=== PATIENT | male | born 1950 | race Caucasian/White ===

== ENCOUNTER → 2017-01-24 | Outpatient (CLI) | payer OTHER ==
[~2017-01-24] MED LIST: ACETAMINOPHEN325 M1 PO; APAP500 PO; ASPIRIN EC81 M1 PO; CLARITIN10 MG PO; CLEOCIN HCL300 MG PO; COLACE100 MG PO; CYCLOBENZAPRINE10 MG PO; DOLOPHINE HCL10 MG; FAMOTIDINE20 MG PO; FLAX OIL1000 MG PO; GABAPENTIN PO; HYDROCODON-ACE1 EAC7 PO; IBUPROFEN; IBUPROFEN 200200 M1 PO; IBUPROFEN200 M2 PO; KRILL OIL 1,001 EAC1 PO; MEDROLDOSEPACK PO; MIRALAX255 GM PO; MOBIC15 MG PO; MOBIC7.5 M1 PO; NORCO 5-325 TA1 EACH PO; PERCOCET 10-321 EACH PO; PROBIOTIC1 EAC1 PO; ROBAXIN 750 MG750 M1 PO; WELLBUTRIN XL150 M1 PO; ZANTAC 150MG T150 M1 PO
--- NOTE | ~2017-01-24 | EKG ---
[address] [address] ELECTROCARDIOGRAM REPORT Name: DEEP BAINS Room #: [facility] PRAVEEN Hughes#: [id number] Admission: 01/24/17 Attend Phys: Natalya Charles MD Discharge: Date of : 52 Report #: [id number] THIS REPORT FOR: //name// [facility] Test Date: 2017-01-24 Test Time: 15:09:44 Pat Name: DEEP BAINS Department: Room: Gender: Educational Programming Director: Nelli MORE : 1950 Requested By: Natalya Charles Order Number: [id number] MD: Baldo Turner Measurements Intervals [place] Rate: 74 P: 68 NE: 161 QRS: 81 QRSD: 101 T: 56 QT: 377 QTc: 419 Interpretive Statements Sinus rhythm Borderline right axis deviation No previous ECG available for comparison Electronically Signed On 01-24-2017 15:59:59 CDT by Baldo Turner [email or web address] <ELECTRONICALLY SIGNED> By: Baldo Turner MD 01/24/17 1559 1509 1509 MD JULIET Dweyr
== END ==
LOC: CV 14:50
DX: Z01.818 Encounter for other preprocedural examination (principal)

== ENCOUNTER → 2017-05-27 | Outpatient (CLI) | payer OTHER ==
[~2017-05-27] VITALS: Ht 188 cm; Wt 105.7 kg
--- NOTE | ~2017-05-27 | HPC ---
[facility] [address] [place] [address] PAIN MANAGEMENT CONSULTATION Name: DEEP BAINS Room #: REG [facility]#: [id number] Admission: 05/27/17 Attend Phys: Tammy Pelaez MD Discharge: Date of : 52 Report #: [id number] THIS REPORT FOR: //name// CC: Shaka Eaton MD DATE OF SERVICE: 05/27/2017 PRIMARY CARE PHYSICIAN: Shaka Dominique M.D. FOLLOWUP COMPLAINT: The sacroiliac joint pain has returned and is very bad. FOLLOWUP HISTORY: The patient is a 66-year-old gentleman who has been seen in the pain clinic because of cervical radiculopathy, lumbar radiculopathy and SI joint dysfunction. He notes that with activities of daily living, he has had increased pain and discomfort in the left sacroiliac joint. He was lifting and pulling with his left arm. He noted some increased pain and discomfort in this area. It is myofascial in nature. He is having some pain in the area of the pectoralis minor. At this juncture, he would like to proceed with an injection into the left SI joint. He notes that movement and changes of position can significantly exacerbated the pain and discomfort he is having in his back. PHYSICAL EXAMINATION: VITAL SIGNS: Blood pressure 134/94, respiratory rate 16 and room air saturation is 98%. Height 6 feet 2 inches, weight 233 pounds and BMI is 29. MUSCULOSKELETAL: The patient has pain and discomfort in the left sacroiliac area to movement of his left leg. Positive Christian sign. Increased pain with dependent position of the left leg hanging from the bed. RECOMMENDATIONS: We discussed treatment options with the patient. Risks and benefits of this procedure were explained. The patient elects to proceed. PROCEDURE NOTE: The patient was placed in the prone position. His back was sterilely prepped with a chlorhexidine solution. A 25-gauge needle was used to numb the area of the SI joint. Fluoroscopy was used for imaging. After appropriate numbing, a 20-gauge spinal needle was then advanced into the area of the SI joint. After appropriate placement, a total of 5 mL of 0.5% bupivacaine and 80 mg Depo-Medrol was injected. The patient tolerated the procedure well. There were no complications. We would like to thank you for letting us participate in his care. We hope he continues to improve. By: 1702 1814 Tammy Pelaez MD /dana
[2017-05-27 11:36] VITALS: BP 135/94
== END | disposition home or self-care (01) ==
LOC: PAIN 03-23 07:27
DX: M53.3 Sacrococcygeal disorders, not elsewhere classified (principal); M54.16 Radiculopathy, lumbar region; M54.12 Radiculopathy, cervical region; G89.29 Other chronic pain; Z88.0 Allergy status to penicillin; Z88.2 Allergy status to sulfonamides; Z91.040 Latex allergy status; Z79.82 Long term (current) use of aspirin

== ENCOUNTER → 2017-06-15 | Outpatient (CLI) | payer OTHER ==
[~2017-06-15] VITALS: Ht 188 cm; Wt 104.4 kg
--- NOTE | ~2017-06-15 | HPC ---
[facility] [address] [place] [address] PAIN MANAGEMENT CONSULTATION Name: DEEP BAINS Katina Room #: REG [facility]#: [id number] Admission: 06/15/17 Attend Phys: Tammy Pelaez MD Discharge: Date of : 52 Report #: [id number] THIS REPORT FOR: //name// CC: Tammy Eaton MD DATE OF SERVICE: 06/15/2017 FOLLOWUP COMPLAINT: The back pain is improved, but my cervical neck pain and arm pain have returned. FOLLOWUP HISTORY: The patient is a 66-year-old gentleman who has been followed in the Pain Clinic because of pain involving the lumbar radicular area. He underwent an epidural steroid injection at the last visit. He has noted improvement in this area. At this juncture, his cervical area is more problematic with pain radiating down into his shoulders, arms with numbness and tingling, described as sharp and heavy and rates this discomfort as a 7/10. He would like to undergo a cervical epidural steroid injection. PHYSICAL EXAMINATION: NECK: The patient finds it is somewhat hard to rotate his neck from left to right, notes increased pain and discomfort when he is looking up, has pain in both arms when he was lifting them. Has a history of cervical radiculopathy, which has improved with epidural steroid injections. VITAL SIGNS: Blood pressure 134/93, pulse 69, respiratory rate 16, room air saturation 98%. Height 6 feet 2 inches, weight 230 pounds, BMI is 29.5. RECOMMENDATIONS: We discussed treatment options with the patient. Risks and benefits of a cervical epidural steroid injection were reviewed. Possible complications were discussed. The patient elects to proceed. IMPRESSION: 1. Improved lumbar radiculopathy after an epidural steroid injection. 2. Cervical radiculopathy, which is problematic with numbness, weakness and tenderness involving his upper extremities. 3. History of sacroiliac joint dysfunction. PLAN: We discussed treatment options with the patient. Risks and benefits were reviewed. He elects to proceed. PROCEDURE NOTE: The patient was placed in the prone position. Fluoroscopy was used to identify the C7-T1 interspace. This area had been sterilely prepped with Betadine and infiltrated with 0.25% bupivacaine. A total of 120 mg triamcinolone was injected. The patient tolerated the procedure well. This area had been infiltrated with 0.25% bupivacaine. [place] [address] PAIN MANAGEMENT CONSULTATION Name: DEEP BAINS Room #: REG CLI [facility]#: [id number] Admission: 06/15/17 Attend Phys: Tammy Pelaez MD Discharge: Date of : 52 Report #: [id number] Clinic for an appropriate amount of time. The patient's pain decreased from 7 to 4. Six seconds fluoroscopy time was used. By: 0914 0057 Tammy Pelaez MD /
[2017-06-15 10:42] VITALS: BP 134/93
== END | disposition home or self-care (01) ==
LOC: PAIN 07:17
DX: M54.12 Radiculopathy, cervical region (principal); M54.16 Radiculopathy, lumbar region; M53.3 Sacrococcygeal disorders, not elsewhere classified

== ENCOUNTER → 2017-09-27 | Outpatient (CLI) | payer OTHER ==
[2017-09-27 08:34] LABS: CREATININE 0.8 mg/dL (0.7-1.3)
== END ==
LOC: CAT 08:03 → LABMALL 08:06
PROVIDERS: Nurse Practitioner
DX: K57.90 Diverticulosis of intestine, part unspecified, without perforation or abscess without bleeding (principal); Z90.49 Acquired absence of other specified parts of digestive tract

== ENCOUNTER → 2017-11-04 | Outpatient (CLI) | payer OTHER ==
[~2017-11-04] VITALS: Ht 185.4 cm; Wt 110.3 kg
--- NOTE | ~2017-11-04 | HPC ---
[facility] [address] [address] [address] PAIN MANAGEMENT CONSULTATION Name: DEEP BAINS Room #: REG [facility]#: [id number] Admission: 11/04/17 Attend Phys: Tammy Pelaez MD Discharge: Date of : 52 Report #: [id number] THIS REPORT FOR: //name// CC: Tammy Eaton MD DATE OF SERVICE: 11/04/2017 FOLLOWUP COMPLAINT: I have noticed a worsening of pain in my neck and my back. FOLLOWUP HISTORY: The patient is a 66-year-old gentleman, who has been seen in the past because of lumbar radiculopathy. He also has a problem with cervical radiculopathy. He has noticed a worsening of pain and discomfort in the upper shoulder areas and has pain, which is radiating down into his shoulders and both arms. He is having pain, which is radiating down into his legs as well. His pain is rated as a 7/10. It is slow in his ability to engage in activities of daily living down significantly. At this juncture, he feels that the cervical complaint is greater than that in the lower extremities. He feels that an epidural injection in the cervical area would be helpful. Past injections have been quite beneficial. He has not had any complications from them in the past. He finds that Robaxin is beneficial and continues to use Mobic. ALLERGIES: LATEX, TAPE, PENICILLIN, AND SULFA. MEDICATIONS: Robaxin 750 mg b.i.d., Claritin 10 mg, Meloxicam 15 mg daily, Tylenol regular strength p.r.n., aspirin 81 mg p.r.n. PHYSICAL EXAMINATION: VITAL SIGNS: Blood pressure 132/87, heart rate 84, respiratory rate 16, room air saturation 98%. Height 6 feet 1 inch, weight 243 pounds, BMI is 32. HEENT: Negative for trauma. Ears and eyes: Findings are unchanged and unremarkable. Mouth: Moist buccal membranes. NECK: No JVD, no bruits. CHEST: Clear. RESPIRATIONS: Nonlabored. HEART: Regular rate. ABDOMEN: Obese, nontender. BACK: Some diffuse pain in the lower lumbar area and the paraspinous tenderness at L4-L5 with palpation. No step-offs noted. The patient has pain and discomfort in the L5-S1 distribution. Upper extremity: The patient has pain and discomfort, radiating down in his shoulders with numbness in his arms and tingling. Has perception of some weakness in his hands. Lifting hands over his head can worsen pain and discomfort in his cervical area. IMPRESSION: Lumbar radiculopathy and cervical radiculopathy. Cervical [facility] [address] [place] [address] PAIN MANAGEMENT CONSULTATION Name: DEEP BAINS Room #: REG PR[facility] Hughes#: [id number] Admission: 11/04/17 Attend Phys: Tammy Pelaez MD Discharge: Date of : 52 Report #: [id number] radiculopathy is more prominent than that in the lumbar area at this juncture and the patient would like to proceed with a cervical epidural steroid injection. History of sacroiliac joint dysfunction, which has improved after the SI joint injections. RECOMMENDATIONS: We discussed treatment options with the patient. Risks and benefits of an epidural steroid injection were discussed. Possible complications of the procedure were discussed. They could include but are not limited to infection, increased muscle soreness, headache, bleeding, nerve trauma, and persistent weakness. The patient states that he has taken his flu shot. He does not smoke. PROCEDURE NOTE: The patient was taken to the procedure area. His neck was sterilely prepped with a Betadine solution. Fluoroscopy was used to identify the C7/T1 interspace. This area had been sterilely prepped with Betadine and infiltrated with 0.25% bupivacaine. A 17-gauge Tuohy with loss of resistance technique was used to gain access to the epidural space. There was no CSF, heme, or paresthesia. After appropriate positioning, a total of 120 mg triamcinolone was injected. The patient tolerated the procedure well. There were no complications. His pain decreased from 7 to 2 at the time of discharge. Total of 11 seconds of fluoro time was used. A Band-Aid was placed at the site. There was no bleeding. The patient was then taken to the recovery room where he remained for an appropriate amount of time. He will follow up in the future as needed. We would like to thank you for letting us participate in his care. We hope he continues to improve. <ELECTRONICALLY SIGNED> By: Tammy Pelaez MD 11/25/17 1332 0815 1258 Tammy Pelaez MD /TEA
[2017-11-04 10:30] VITALS: BP 132/87
== END | disposition home or self-care (01) ==
LOC: PAIN 06:55
DX: M54.12 Radiculopathy, cervical region (principal); G89.29 Other chronic pain; M54.16 Radiculopathy, lumbar region; Z88.0 Allergy status to penicillin; Z88.2 Allergy status to sulfonamides; Z91.040 Latex allergy status; Z79.82 Long term (current) use of aspirin; Z79.899 Other long term (current) drug therapy

== ENCOUNTER → 2018-01-02 | Outpatient (CLI) | payer OTHER | LOC: CAT 11:41 | DX: J01.00 Acute maxillary sinusitis, unspecified (principal) ==

== ENCOUNTER → 2018-02-24 | Outpatient (CLI) | payer OTHER ==
[~2018-02-24] VITALS: Ht 185.4 cm; Wt 104.7 kg
--- NOTE | ~2018-02-24 | HPC ---
[facility] [address] [address] PAIN MANAGEMENT CONSULTATION Name: HERSONDEEP Katina Room #: REG [facility]#: [id number] Admission: 02/24/18 Attend Phys: Tammy Pelaez MD Discharge: Date of : 52 Report #: [id number] THIS REPORT FOR: //name// CC: Tammy Eaton MD DATE OF SERVICE: 02/24/2018 FOLLOWUP COMPLAINT: He had some worsening of low back pain that goes down into the groin as well as down to the right ankle. FOLLOWUP HISTORY: The patient is a 67-year-old gentleman who has been followed in the pain clinic for quite a number of years. As you recall, he has problems with his neck as well as with low back. At this juncture, he is having pain in the low back area. He is experiencing pain that radiates down into his leg. He has had surgery in the past. He rates the pain in the right low back as 6-7/10. He is unable to perform activities of daily living secondary to the pain. He denies any new trauma. He describes it as some heavy numbness, tingling, aching, and stabbing in the affected area. Pain is worse when he is walking, bending, and lifting. Has tried cold and heat as well as lying down, which have been helpful. Also, has pain in the groin area. Denies having lifted any heavy objects. Denies any bowel or bladder changes. He has undergone epidural steroid injections in the past and they have all been beneficial. Continues to try nonsteroidal anti-inflammatory medications and is on Mobic 15 mg daily. He has not taken any opioid medications at this juncture on a regular basis. ALLERGIES: TAPE, LATEX, PENICILLIN, SULFA. MEDICATIONS: Robaxin 750 mg b.i.d., Claritin 10 mg daily, Meloxicam 15 mg daily, Tylenol Extra Strength p.r.n., aspirin 81 mg. PAIN CLINIC ASSESSMENT: 1. The patient states that he is not being treated for osteoarthritis, but has had some arthritic changes in his back and has undergone surgery. 2. Height 6 feet 1 inch, weight 230 pounds, BMI is 30. 3. Vital signs: Blood pressure 139/96, pulse 75, respiratory rate 16, room air saturation 100. 4 Pain intensity 6-7. 5. Fall risk. The patient has not fallen in the last 3 months. 6. Blood thinner. The patient is not on a blood thinner. 7. Hypertension. The patient is not being treated for hypertension. 8. Opioid therapy greater than 6 weeks. The patient is not on opioid therapy. 9. Risk assessment tool, 0/3, which is low. 10. Functional assessment 40/70, which shows moderate impact upon activities of daily living. [address] [address] PAIN MANAGEMENT CONSULTATION Name: DEEP BAINS Room #: REG [facility]#: [id number] Admission: 02/24/18 Attend Phys: Tammy Pelaez MD Discharge: Date of : 52 Report #: [id number] 11. Recreational drug use. Denies use of recreational drugs. 12. Tobacco The patient has never smoked cigarettes. 13. Alcohol: The patient denies use of alcoholic beverages. PHYSICAL EXAMINATION: GENERAL: The patient is well-developed, well-nourished white male, appears his stated age. He is alert and oriented x 3. Affect is appropriate. Speech is fluent. HEENT: Normocephalic, atraumatic. Extraocular eye muscles intact. Sclerae nonicteric. Hearing is within normal limits. Mucous membranes are moist. NECK: Without adenopathy or bruits. Good range of motion. CHEST: Clear to auscultation without rhonchi or rales. ABDOMEN: Protuberant without significant scoliosis, kyphosis or lordosis. EXTREMITIES: Upper extremity muscle strength is judged to be 5/5 for the major muscle groups in the upper extremity. He does have some continued pain in his neck and sometimes down into his arms, but this is not very problematic at this juncture. This is He does have some pain radiating down into both shoulders and his arms. Lumbar/lower extremity: The patient has pain and discomfort in the lower portion of his back with pain radiating down into the right leg. States that he has trouble walking. Notes that his feet feel heavy with some numbness. Left posterior superior iliac spine area does have some areas of soreness. Has some mid back pain and discomfort and some pain radiating into the right groin area. The patient has a L4-L5 sensory changes with some numbness and weakness. IMPRESSION: 1. History of lumbar radiculopathy status post lumbar surgeries in the past with exacerbation today. 2. Cervical radiculopathy, not quite as problematic today as the lumbar area. 3. History of sacroiliac joint dysfunction. RECOMMENDATIONS: We discussed treatment options with the patient. Risks and benefits of an epidural steroid injection were again reviewed. Possible complications were discussed. They could include but are not limited to infection, increased muscle soreness, worsening of pain, nerve damage. The patient elects to proceed. He continues to have some cervical pain and discomfort as well. He is becoming more active now with spring is turning to summer. Overall, this pain is not as problematic as that in his low back area. He has returned to the pain clinic for an epidural steroid injection. Risks have been discussed with the patient. He would like to proceed. We will consult his insurance company for precertification. After this, we would then proceed with an injection in the L4-L5 area to help with pain and discomfort. [address] [place] [address] PAIN MANAGEMENT CONSULTATION Name: HERSONDEEP Room #: REG CL Ellen#: [id number] Admission: 02/24/18 Attend Phys: Tammy Pelaez MD Discharge: Date of : 52 Report #: [id number] He will call us if he has any problems in the interim. We would like to thank you for letting us participate in his care. We hope he continues to improve. <ELECTRONICALLY SIGNED> By: Tammy Pelaez MD 03/03/18 0902 1043 1520 Tammy Pelaez MD /TEA
[2018-02-24 10:21] VITALS: BP 139/96
== END ==
LOC: PAIN 10:01
DX: M54.12 Radiculopathy, cervical region (principal); F11.90 Opioid use, unspecified, uncomplicated; I10 Essential (primary) hypertension

== ENCOUNTER → 2018-03-08 | Outpatient (CLI) | payer OTHER ==
[~2018-03-08] VITALS: Ht 188 cm; Wt 103.7 kg
--- NOTE | ~2018-03-08 | HPC ---
[facility] [place] [address] [place] [address] PAIN MANAGEMENT CONSULTATION Name: HERSONDEEP D Room #: REG [facility]#: [id number] Admission: 03/08/18 Attend Phys: Tammy Pelaez MD Discharge: Date of : 52 Report #: [id number] THIS REPORT FOR: //name// CC: Tammy Eaton MD DATE OF SERVICE: 03/08/2018 FOLLOWUP COMPLAINT: Here for the epidural steroid injection. FOLLOWUP HISTORY: The patient is a 67-year-old gentleman, who has been followed in the pain clinic for quite a number of problems. He has had some pain and discomfort in the past with cervical radicular pain. He has undergone epidural steroid injections in this area. He has also had some problems with his low back and has undergone back surgery because of lumbar radiculopathy and disk problems. He has undergone epidural steroid injections and feels that he is having pain and discomfort, which radiates in 2 places. There is pain which radiates down into the left leg in the L5 distribution as well as pain and discomfort radiating to the anterior portion of his right groin. He notes that this pain is quite problematic, rates his pain overall today as a 7/10. He has chat with his . She is a nurse. At this juncture, they feel that an epidural steroid injection for the groin pain would be the most reasonable treatment course today. He has returned for an epidural steroid injection to help with pain in the right groin area. ALLERGIES: LATEX, TAPE, PENICILLIN, SULFA. MEDICATIONS: Robaxin 750 mg b.i.d., Claritin 10 mg, Meloxicam 15 mg daily, Tylenol regular strength p.r.n., aspirin 81 mg p.r.n. PAIN CLINIC ASSESSMENT: 1. History of osteoarthritis. The patient is not being treated for osteoarthritis or rheumatoid arthritis. 2. Height 6 feet 2 inches, weight 228 pounds, BMI is 29. 3. Vital Signs: Blood pressure 117/80, pulse 75, respiratory rate 16, room air saturation is 97%. 4. Pain intensity 05/02. 5. Fall risk. The patient has not fallen in the last 3 months. 6. Blood thinner use. The patient is not using a blood thinner 7. History of hypertension. The patient is not being treated for hypertension. 8. Opioid therapy greater than 6 weeks. The patient is not receiving opioid medications on a regular basis. 9. Functional assessment tool 40/70, indicated moderate amount of pain and discomfort when engaged in activities of daily living. 10. Recreational drug use. Denies use of recreational drugs. [address] [address] PAIN MANAGEMENT CONSULTATION Name: DEEP BAINS [id number] Admission: 03/08/18 Attend Phys: Tammy Pelaez MD Discharge: Date of : 52 Report #: [id number] 11. Tobacco. The patient has never smoked. 12. Alcohol. The patient denies frequent use of alcoholic beverages. PHYSICAL EXAMINATION: GENERAL: The patient is a well-developed, well-nourished white male. He appears his stated age. He is not in distress. Speech is fluent. Affect is appropriate. HEENT: Normocephalic, atraumatic. Extraocular eye muscles are intact. Sclerae nonicteric. Hearing is within normal limits. Mucous membranes are moist. NECK: Without significant adenopathy, bruits or JVD. LUNGS: Clear to auscultation without murmur. HEART: Regular rate. S1 and S2. ABDOMEN: Nontender. MUSCULOSKELETAL: Without significant scoliosis, kyphosis or lordosis. Upper extremity strength is judged to be 5/5 for the major muscle groups in the upper extremity. Lower extremity, the patient has some pain and discomfort in the left low back area with pain radiating down at the L4-L5 dermatomal distribution. He has pain and discomfort in the right area, which radiates into the L1-L2 area of his groin. The patient feels that this area is the most problematic at this juncture and would like to have an epidural steroid injection for this. IMPRESSION: 1. Lumbar radiculopathy with pain in the L4-L5 distribution as well as pain in the L1-L2 distribution on the right. 2. Cervical radiculopathy without significant problems at this juncture. 3. History of sacroiliac joint dysfunction. RECOMMENDATIONS: We discussed treatment options with the patient. At this juncture, he feels that the pain in the right groin area is that which is most problematic. We have discussed and pointed out to the patient where the nerve irritation would originate for this area. Risks and benefits of an epidural steroid injection were again reviewed. Possible complications were discussed. They include but are not limited to infection, increased muscle soreness, headache, bleeding, paresis, nerve paralysis and the patient elects to proceed. PROCEDURE NOTE: The patient was placed in the prone position. His back was sterilely prepped with a Betadine solution. This was allowed to dry. 0.25% bupivacaine was infiltrated into this area. A 17-gauge Tuohy with loss of resistance technique was used to gain access to the epidural space. There was no CSF, heme or paresthesia. A total of 80 mg Depo-Medrol, 40 mg triamcinolone and 2 mL of 0.25% bupivacaine was injected. The patient tolerated the procedure well. There were no complications. He remained in the pain clinic for an appropriate amount of time. A Band-Aid was placed. There was no bleeding. The patient rates his pain as a 5 and describes it as "better." A total of 13 seconds fluoro time was used. [address] [address] PAIN MANAGEMENT CONSULTATION Name: DEEP BAINS Room #: REG CLI [facility]#: [id number] Admission: 03/08/18 Attend Phys: Tammy Pelaez MD Discharge: Date of : 52 Report #: [id number] We would like to thank you for letting us participate in his care. We hope he continues to improve. By: 1430 54 Tammy Pelaez MD /TEA
[2018-03-08 10:55] VITALS: BP 117/80
== END | disposition home or self-care (01) ==
LOC: PAIN 06:20
DX: M54.16 Radiculopathy, lumbar region (principal); G89.29 Other chronic pain; M54.12 Radiculopathy, cervical region; M53.3 Sacrococcygeal disorders, not elsewhere classified; Z98.890 Other specified postprocedural states; Z88.0 Allergy status to penicillin; Z88.2 Allergy status to sulfonamides; Z91.040 Latex allergy status; Z79.82 Long term (current) use of aspirin; Z79.899 Other long term (current) drug therapy

== ENCOUNTER → 2018-03-29 | Outpatient (CLI) | payer OTHER | LOC: MRI 07:17 | DX: M19.011 Primary osteoarthritis, right shoulder (principal); S46.911A Strain of unspecified muscle, fascia and tendon at shoulder and upper arm level, right arm, initial encounter; X58.XXXA Exposure to other specified factors, initial encounter; Y93.89 Activity, other specified; Y92.89 Other specified places as the place of occurrence of the external cause; Y99.8 Other external cause status ==

== ENCOUNTER → 2018-05-01 | Outpatient (CLI) | payer OTHER | LOC: MRI 12:56 | DX: M48.062 Spinal stenosis, lumbar region with neurogenic claudication (principal); M51.16 Intervertebral disc disorders with radiculopathy, lumbar region; M25.78 Osteophyte, vertebrae; M51.46 Schmorl's nodes, lumbar region ==

== ENCOUNTER → 2018-10-13 | Outpatient (CLI) | payer OTHER ==
[~2018-10-13] VITALS: Ht 188 cm; Wt 107.0 kg
--- NOTE | ~2018-10-13 | HPC ---
[facility] [place] [address] PAIN MANAGEMENT CONSULTATION Name: DEEP BAINS Room [facility]: [facility] [id number] Admission: 10/13/18 Attend Phys: Tammy Pelaez MD Discharge: Date of : 52 Report #: [id number] THIS REPORT FOR: //name// CC: Tammy Eaton DATE OF SERVICE: 10/13/2018 CHIEF COMPLAINT: Here for a cervical epidural steroid injection. I have been working on a house with my son for about 2 months, noted worsening of pain in the neck. HISTORY OF PRESENT ILLNESS: The patient is a 67-year-old gentleman who has been followed in the pain clinic because of chronic pain involving his neck as well as his back. He and his son have been restoring the house. States that he has been doing plumbing and a lot of other activities around the house. He has noted a worsening of pain and discomfort in his neck. He is unable to look up. Notes that doing the activities around the house, he was looking up quite a bit. In the past, he has noted worsening of pain and discomfort. He is unable to raise his right arm up above his head without significant pain and discomfort, notes some weakness down into his fingers as well. He feels that there is some stiffness in his hands. He is waking up because of the pain and discomfort. He has undergone cervical epidural steroid injections in the past and gleaned significant benefits from these. He has returned today with the desire to undergo another epidural steroid injection. He is somewhat concerned that his rujasq-qn-ltp is in the hospital. His hzxxdo-og-tdn-swallowed a portion of his ____. This moved to his stomach and is down in the area of his appendix. He is on a ventilator in the hospital. He is not doing so well. ALLERGIES: LATEX, TAPE, PENICILLIN, AND SULFA. MEDICATIONS: Robaxin 750 mg, Claritin 10 mg, meloxicam 15 mg daily, and Tylenol Extra Strength p.r.n. 81 mg. PAIN CLINIC ASSESSMENT AND PQRS: 1. Osteoarthritis. The patient is not being treated for osteoarthritis. He has not being treated for rheumatoid arthritis. 2. Height 6 feet 2 inches, weight 235 pounds, BMI is 30.2. 3. Vital signs: Blood pressure 139/85, pulse 74, respiratory rate 16, room air saturation 96%. 4. Pain intensity 8/10. 5. Fall risk. The patient has not fallen in the last 3 months. 6. Blood thinner. The patient is not on a blood thinning medication. 7. Hypertension. The patient is not being treated for hypertension. [address] [address] PAIN MANAGEMENT CONSULTATION Name: DEEP BAINS [facility] [id number] Admission: 10/13/18 Attend Phys: Tammy Pelaez MD Discharge: Date of : 52 Report #: [id number] 8. Opioids greater than 6 weeks. The patient is not on an opioid regimen. 9. Risk assessment tool for opioids 0/3 low for use. 10. Functional assessment tool 40/70. 11. Recreational drug use. The patient denies use of recreational drugs. 12. Tobacco: The patient has never smoked. 13. Alcohol: The patient denies use of alcoholic beverages. PHYSICAL EXAMINATION: GENERAL: The patient is a well-developed, well-nourished white male. Appears his stated age. He is alert and oriented x 3. His affect is appropriate. Speech is fluent. HEENT: Normocephalic, atraumatic. Extraocular eye muscles intact. Sclerae nonicteric. Mucous membranes are moist. NECK: The patient has some limitation in his ability to look up with extension as well as notes some increased pain with right and left bending of his neck. He is experiencing pain that radiates down into his right shoulder down into his arm and forearm area. LUNGS: Clear to auscultation without rhonchi or rales. HEART: Regular rate. S1, S2. ABDOMEN: Nontender. Bowel sounds present. MUSCULOSKELETAL: Without significant scoliosis, kyphosis, or lordosis. Upper extremity muscle strength is judged to be 4+ strength on the left. It was 5/-5 strength on the right. The patient has some discomfort in the low back area. Overall, muscle strength in the lower area is 5-/5 for the major muscle groups in lower extremity. Uses his arms to go from a sitting to a standing position. IMPRESSION: 1. Cervical radiculopathy with radiation down to left shoulder with numbness, tingling, and weakness in the left shoulder and arm with tingling down into his fingers. 2. History of lumbar radiculopathy in the L4-L5 distribution, status post surgery. RECOMMENDATIONS: We discussed treatment options with the patient. Risks and benefits of an epidural steroid injection in the cervical area were reviewed. Possible complication of the procedure, which could include but are not limited to infection, worsening of pain, increased muscle soreness were discussed and the patient elects to proceed. The patient has undergone cervical epidural steroid injection in the past. He has gained greater than 90% improvement after the injections. This was for a 9-month period of time. Over the last 2 months, he has noted increased pain and discomfort. He has been doing stretching exercises and other things to try and decrease the neck pain and discomfort. Overall, this continued to worsen and he has returned to the pain clinic with a desire to undergo an injection. We will have the patient return after he has been pre-certified by his insurance company. [address] [address] PAIN MANAGEMENT CONSULTATION Name: SHANDA BAINSMARYANN Ambriz Room #: REG [facility]ITAL[facility]ette#: [id number] Admission: 10/13/18 Attend Phys: Tammy Pelaez MD Discharge: Date of : 51 Report #: [id number] We would like to thank you for letting us participate in his care. We hope he continues to improve. By: 1200 0227 Tammy Pelaez MD /nt
[2018-10-13 10:13] VITALS: BP 139/85
== END ==
LOC: PAIN 09:54
DX: M54.12 Radiculopathy, cervical region (principal); M54.16 Radiculopathy, lumbar region; R20.2 Paresthesia of skin

== ENCOUNTER → 2018-10-23 | Outpatient (CLI) | payer OTHER | LOC: RAD 10:10 | DX: M19.012 Primary osteoarthritis, left shoulder (principal); M54.2 Cervicalgia ==

== ENCOUNTER → 2018-10-30 | Outpatient (CLI) | payer OTHER ==
[~2018-10-30] MED LIST changes: +OXYCODONE-ACET1 EACH PO; +PREDNISONE 20 M20 MG PO
== END ==
LOC: MRI 10:37
DX: M50.23 Other cervical disc displacement, cervicothoracic region (principal); M47.892 Other spondylosis, cervical region; M75.102 Unspecified rotator cuff tear or rupture of left shoulder, not specified as traumatic

== ENCOUNTER → 2018-11-01 | Outpatient (CLI) | payer OTHER ==
[~2018-11-01] VITALS: Ht 188 cm; Wt 106.7 kg
--- NOTE | ~2018-11-01 | HPC ---
[facility] [address] [place] [address] PAIN MANAGEMENT CONSULTATION Name: DEEP BAINS Room #: REG [facility]#: [id number] Admission: 11/01/18 Attend Phys: Tammy Pelaez MD Discharge: Date of : 52 Report #: [id number] THIS REPORT FOR: //name// CC: Tammy Eaton DATE OF SERVICE: 11/01/2018 FOLLOWUP HISTORY/CHIEF COMPLAINT: Here for cervical epidural injection. I am having lots of pain. HISTORY: The patient is a 67-year-old gentleman who has been followed in the pain clinic because of cervical radiculopathy as well as lumbar radiculopathy. He has undergone epidural steroid injection in the lumbar area in the past and gleaned benefits from these. At this juncture, he is having the most pain and discomfort in his neck area with pain that is radiating down into the left arm. He also has had some problems and pain involving his left shoulder. He states that he had an MRI that showed that there were some problems in his shoulder. He is scheduled to go and see an orthopedic surgeon in regards to that problem. He has returned today with the hope of undergoing an epidural steroid injection in the cervical area with hope of improved pain and discomfort in his neck. His is a nurse. Unfortunately, her father as a result of his prolonged illness. This has made it somewhat more troubling for him and his given the current situation. ALLERGIES: LATEX, TAPE, PENICILLIN, SULFA. CURRENT MEDICATIONS: Robaxin 750 mg b.i.d., Claritin 10 mg, Meloxicam 15 mg, Tylenol regular strength, aspirin 81 mg p.r.n. PAIN CLINIC ASSESSMENT/PQRS: 1. The patient is not being treated for rheumatoid arthritis. He does have some arthritic changes involving his left shoulder. 2. Height 6 feet 2 inches, weight 235 pounds, BMI is 30. 3. Vital signs: Blood pressure 122/70, pulse 95, respiratory rate 16, room air saturation 98%. 4. Pain intensity 10/10. 5. Fall risk. The patient has not fallen in the last 3 months. 6. Blood thinner. The patient is not on a blood thinning medication. 7. Hypertension. The patient is not been treated for hypertension. 8. Opioid greater than 6 weeks. The patient is not on a regular opioid regimen. 9. Risk assessment tool, low for opioid use, 0/3. 10. Functional assessment tool 40/70. 11. Recreational drug use: The patient denies. 12. Tobacco: [place] [address] PAIN MANAGEMENT CONSULTATION Name: DEEP BAINS Room #: REG [facility]#: [id number] Admission: 11/01/18 Attend Phys: Tammy Pelaez MD Discharge: Date of : 52 Report #: [id number] 13. Alcohol: The patient occasionally drinks alcoholic beverages. PHYSICAL EXAMINATION: GENERAL: The patient is a well-developed, well-nourished white male. Appears his stated age. He complains of pain and discomfort in his neck as well as in his left shoulder. He does look and complains of significant pain and discomfort. HEENT: Normocephalic, atraumatic. Extraocular eye muscles intact. Sclerae nonicteric. Mucous membranes are moist. The patient has some limited movement of his neck. Spurling's maneuver is positive. The patient has pain and discomfort radiating down to the left arm. Also, notes some limited movement in his left shoulder. Complains of pain and discomfort in the posterior portion of his left scapular area down in the area of rhomboids. LUNGS: Generally clear to auscultation. HEART: Regular rate. S1, S2. ABDOMEN: Nontender. MUSCULOSKELETAL: Without significant scoliosis, kyphosis or lordosis. Upper extremity muscle strength is judged to be 5-/5 for the major muscle groups in the upper extremity. The patient has pain and discomfort with pain radiating down into his left hand with numbness and tingling involving his fingers. IMPRESSION: 1. Lumbar radiculopathy with pain in the cervical area. 2. History of lumbar radiculopathy, L4-L5 distribution. 3. History of sacroiliac joint dysfunction. LABORATORY DATA: 1. Cervical spine dated 10/30/2018. This show narrowing of disk C4/C5 and C5/C6 similar to prior study. There is also mild anterolisthesis and narrowing of the disk at C6-C7. This is associated with a focal central disk protrusion asymmetrical to the right, which is minimally more prominent. 2. C3-C4 shows central disk bulging. There is uncovertebral spurring and degenerative changes with possible lateral disk component, which causes foraminal encroachment on the left. The appearance is similar. There is pxlh-aa-eekhxawo foraminal encroachment on the right from degenerative changes. This is less marked on the left. Central canal measures 9 mm and is minimally narrowed. 3. C4-C5 shows disk narrowing with mild diffuse disk bulge. Central canal is narrowed measuring 9 mm. There is uncovertebral facet degenerative changes bilaterally. Appearance is similar to prior study. 4. C5/C6 shows disk bulge centrally. There is uncovertebral and facet degenerative change and bilateral foraminal encroachment. Central canal is narrowed to 9 mm. 5. C6-C7 shows disk bulging diffusely with some asymmetry to the left. Central canal is narrowed measuring 9 mm. There is uncovertebral and facet degenerative change with bilateral foraminal encroachment, similar to prior study. There is [facility] [address] [place] [address] PAIN MANAGEMENT CONSULTATION Name: DEEP BAINS Room #: REG [facility]#: [id number] Admission: 11/01/18 Attend Phys: Tammy Pelaez MD Discharge: Date of : 52 Report #: [id number] a left canalicular facet joint cyst measuring 6 mm x 2 mm. 6. C7-T1 demonstrates more prominent disk protrusion. There is a component extending both to the right in to the left with more prominent, component extending to the left with mass effect on the left neural foramen. There is milder narrowing of the right neural foramen. The central component is less marked and central canal measures 10 mm. 7. MRI of the left shoulder without contrast dated 10/30/2018. IMPRESSION: 1. Remote rotator cuff tear with severe attenuation of the supraspinatus portion of repair. There appears to be a small full thickness perforation along the posterior margin of repair. This may be incidental, but if there are supraspinatus weakness, then MRI arthropathy followup should be considered. 2. Benign appearing eccentrically located lesion along the lateral cortex of the proximal humeral metaphysis. X-ray correlation recommended. The lesion is smoothly marginated, angiographic. Periarticular radiographic followup is recommended. RECOMMENDATIONS: We discussed treatment options with the patient. At this juncture, we will proceed with a cervical epidural steroid injection. Risks and benefits of an epidural steroid injection were discussed. Possible complications of the procedure, which could include but are not limited to infection, worsening of pain, no improvement in pain, were discussed and the patient elects to proceed. PROCEDURE NOTE: The patient was placed in the prone position. Fluoroscopy was used to identify the C7-T1 interspace. A pillow had been placed under the patient's chest to improve positioning. A 0.25% bupivacaine had been used to sterilely prep the area. A 0.25% bupivacaine using a 25-gauge needle was then used to numb up the area. A 17-gauge Tuohy with loss of resistance technique was moved into the appropriate place using anterior, posterior as well as lateral viewing with fluoroscopy. After appropriate placement, a total of 120 mg triamcinolone was injected. The patient tolerated the procedure well. There were no complications. He remained in the pain clinic for an appropriate amount of time. Still complains of pain and discomfort, which is quite problematic, a total of 15 seconds fluoroscopy time was used. We would like to thank you for letting us participate in his care. He will follow up with his orthopedic surgeon in the near future. By: 1848 0240 Tammy Pelaez MD /dana
[2018-11-01 13:51] VITALS: BP 122/70
--- NOTE | 2018-11-01 13:58 | NUR ---
Pain Clinic Assessment: 1. History of Osteoarthritis: Not Applicable History of Rheumatoid Arthritis: Not Applicable 2. Height: 6 ft. 2 in. 188.0 cm. Weight: 235.2 lb. oz. 106.686 kg. Patient's BMI: 30.2 3. Vital Signs: BP: 122/70 Pulse: 95 Resp: 16 Temp: 02 Sat: 98 ECG Mon: 4. Pain Intensity: 10 5. Fall Risk: Dizziness: N Needs help standing or walking: N Fallen in the last 3 months: N Fall risk comments: 6. Patient on Blood Thinner: None 7. History of Hypertension: N 8. Opioid Therapy greater than 6 weeks: N Opiate Contract Signed: 9. Risk Assessment Tool Provided: LOW RISK 0/3 10. Functional Assessment Tool: 11. Recreational Drug Use: Never Drug Type: Tobacco Use: Never Smoker Tobacco Type: Amount or Packs/day: How Many Years: Alcohol Use: Yes Frequency: Quant:
== END | disposition home or self-care (01) ==
LOC: PAIN 07:06
DX: M54.12 Radiculopathy, cervical region (principal); G89.29 Other chronic pain; Z91.040 Latex allergy status; Z88.0 Allergy status to penicillin; Z88.2 Allergy status to sulfonamides; Z79.82 Long term (current) use of aspirin; Z79.899 Other long term (current) drug therapy

== ENCOUNTER → 2018-11-10 | Outpatient (CLI) | payer OTHER ==
[~2018-11-10] MED LIST changes: +GABAPENTIN 100100 MG PO
--- NOTE | 2018-11-13 16:06 | PATH ---
[facility] [address] [place] [address] PATHOLOGY RPT PROCEDURE Name: DEEP BAINS Room #: [facility] [id number] ������������������ Admission: 11/10/18 ������������������ Date of : 52 Discharge: Report #: [id number] Path Case #: [id number] [facility] Accession Number: [id number] . 01 Material submitted: . BX POLYP DESCENDING COLON . 01 Clinical history: . Pre-OP DX: Hx polyps, right flank pain Post-OP DX: Colon polyp, diverticulosis . 02 Diagnosis: Polyp, descending colon polyp, endoscopic biopsy: - Tubular adenoma. - Negative for high-grade dysplasia. (IUV:pit 11/13/2018) QTP/11/13/2018 . 02 Electronically signed: . Nahomi Pagan MD, Pathologist NPI- [id number] . 01 Gross description: . Received in formalin labeled "Deep Bains, BX polyp descending colon," is a single segment of shore soft tissue measuring 0.5 cm in maximum dimension. The specimen is entirely submitted in cassette A1. (TSD; 11/10/2018) TOB/TOB . 02 Pathologist provided ICD-10: D12.4 . 02 CPT . 066371 Specimen Comment: A courtesy copy of this report has been sent to Specimen Comment: [phone], . Specimen Comment: Report sent to and Performed at: [address] [id number] MD Lebron Colin MD Phone: [phone] Performed at: [address] [id number] MD Nahomi Pagan MD Phone: [phone]
== END | disposition home or self-care (01) ==
LOC: GI 06:42
DX: D12.4 Benign neoplasm of descending colon (principal); K57.30 Diverticulosis of large intestine without perforation or abscess without bleeding; I10 Essential (primary) hypertension; E78.00 Pure hypercholesterolemia, unspecified; M54.2 Cervicalgia; G89.29 Other chronic pain; I48.91 Unspecified atrial fibrillation; Z79.01 Long term (current) use of anticoagulants; Z79.899 Other long term (current) drug therapy; Z90.49 Acquired absence of other specified parts of digestive tract; Z98.890 Other specified postprocedural states; Z86.010 Personal history of colon polyps; Z88.0 Allergy status to penicillin; Z88.2 Allergy status to sulfonamides; Z88.6 Allergy status to analgesic agent; Z91.040 Latex allergy status
CPT/HCPCS: 62110; 62900

== ENCOUNTER → 2018-12-06 | Outpatient (CLI) | payer OTHER | LOC: CAT 14:04 | DX: J34.89 Other specified disorders of nose and nasal sinuses (principal); R43.9 Unspecified disturbances of smell and taste ==

== ENCOUNTER → 2019-03-15 | Outpatient (CLI) | payer OTHER | LOC: RAD 10:12 | DX: M47.812 Spondylosis without myelopathy or radiculopathy, cervical region (principal); M43.12 Spondylolisthesis, cervical region; M43.22 Fusion of spine, cervical region; Z98.890 Other specified postprocedural states ==

== ENCOUNTER → 2019-04-19 | Outpatient (CLI) | payer OTHER | LOC: MRI 14:33 → RAD 14:33 | DX: M75.81 Other shoulder lesions, right shoulder (principal); M75.21 Bicipital tendinitis, right shoulder ==

== ENCOUNTER → 2019-08-15 | Outpatient (CLI) | payer OTHER ==
[~2019-08-15] MED LIST changes: +ACID REDUCER 1150 MG PO; +AZELASTINE137 MCG/0.; +CALCIUM500 MG PO; +FLOMAX0.4 MG PO; +FLONASE 0.05%50 MCG NARES; +PRILOSEC OTC20 MG PO; +TOPROL XL100 MG PO; +VALSARTAN80 MG PO; +XARELTO20 MG PO
== END ==
LOC: CAT 08:57
DX: Z13.6 Encounter for screening for cardiovascular disorders (principal); E78.00 Pure hypercholesterolemia, unspecified; I25.10 Atherosclerotic heart disease of native coronary artery without angina pectoris

== ENCOUNTER → 2019-08-22 | Outpatient (CLI) | payer OTHER ==
[~2019-08-22] VITALS: Ht 188 cm; Wt 104.3 kg
--- NOTE | 2019-08-24 17:06 | PATH ---
[facility] [address] [address] PATHOLOGY RPT PROCEDURE Name: DEEP BAINS Katina Room #: REG MARINikko Hughes#: [id number] Admission: 08/22/19 Date of : 52 Discharge: Report #: [id number] Path Case #: [id number] [facility] Accession Number: [id number] . 01 Material submitted: . PART A: stomach - BIOPSY OF GASTRITIS T R/O H. PYLORI PART B: stomach - GASTRIC POLYP . 01 Clinical history: . Preop DX: Cough, reflux Postop DX: Esophagitis, gastritis, duodenitis, gastric ulcer A. R/O H. pylori . 02 Diagnosis: A. Gastric mucosa, gastritis R/O H. pylori, endoscopic biopsy: - Mild reactive gastropathy. - Negative for intestinal metaplasia or atrophy. - Negative for Helicobacter pylori (properly controlled immunohistochemical stain performed). . B. Polyp, gastric polyp, endoscopic biopsy: - Compatible with a fundic gland polyp. - Negative for dysplasia. (IUV:john; 08/24/2019) QMS 08/24/2019 1302 Local . 02 Electronically signed: . Nahomi Pagan MD, Pathologist NPI- [id number] . 01 Gross description: . A. Received in formalin labeled "Deep Bains, BX of gastritis," are three segments of shore-brown soft tissue measuring 0.7 x 0.4 x 0.3 cm in aggregate dimensions and ranging from 0.3 to 0.4 cm in maximum dimension. The specimen is submitted entirely in cassette A1. . B. Received in formalin labeled "Deep Bains, gastric polyp," are three segments of shore soft tissue measuring 0.8 x 0.4 x 0.2 cm in aggregate dimensions and ranging from 0.3 to 0.4 cm in maximum dimension. The specimen is submitted entirely in cassette B1. (DAC; 08/23/2019) XDC/XDC 08/23/2019 1432 Local . 02 Pathologist provided ICD-10: K31.9, K31.7 . 02 CPT . [address] [address] PATHOLOGY RPT PROCEDURE Name: DEEP BAINS Room #: REG CL Ellen#: [id number] Admission: 08/22/19 Date of : 52 Discharge: Report #: [id number] Path Case #: [id number] Specimen Comment: A courtesy copy of this report has been sent to [phone] Specimen Comment: [phone] Specimen Comment: Report sent to / DR SANTOS Performed at: [address], [place] [id number] MD Lebron Colin MD Phone: [phone] Performed at: [address] [id number] MD Nahomi Pagan MD Phone: [phone]
--- NOTE | 2019-08-29 09:30 | P ---
[facility] [place] [address] PROCEDURE REPORT Name: DEEP BAINS Katina Room #: REG [facility]#: [id number] Admission: 08/22/19 Attend Phys: Eloy Swenson Discharge: Date of : 52 Report #: [id number] THIS REPORT FOR: //name// CC: Eloy Eaton MD PROCEDURE PERFORMED: Upper endoscopy with biopsies and esophageal dilation. HISTORY OF PRESENT ILLNESS: The patient is a 68-year-old male with dysphagia following an anterior cervical neck fusion surgery earlier this year. He does have intermittent heartburn symptoms, currently taking Zantac b.i.d., also was on aspirin and Mobic on a fairly regular basis. He does have chronic cough. Plan is for EGD. DESCRIPTION OF PROCEDURE: The risks and benefits of the procedure were explained to the patient, those risks including but not limited to bleeding, perforation and the risk of sedation. He understood these risks and gave informed consent. Sedation was given using propofol per anesthesia. Next, using a standard Olympus upper endoscope, the scope was placed in the patient's mouth and advanced under direct vision through the esophagus, stomach and into the second portion of the duodenum. The larynx was normal in appearance. The upper and mid esophagus was normal. In the distal esophagus at the GE junction, grade B erosive esophagitis was noted. No evidence of bleeding. No obvious stricture, although it was inflamed. Overall, there was mild gastritis in the gastric body and antrum. Biopsies were obtained to rule out H. pylori. Several small gastric polyps were also noted. Several were biopsied. The pylorus was normal and patent. In the duodenal bulb, there was a mild duodenitis. No evidence of bleeding or ulcer. The first and second portion of the duodenum was normal. The scope was then brought back up into the patient's stomach and a Savary guidewire was advanced through the scope, leaving the guidewire in place as the scope was then withdrawn. Next, a 51-Nepali Savary dilation of the esophagus was then performed without difficulty. The wire and dilator were removed. The scope was reintroduced into the patient's stomach. There was no evidence of mucosal tear after dilation. The scope was then withdrawn and the procedure terminated. The patient tolerated the procedure well. IMPRESSION: 1. Grade B erosive esophagitis. 2. Mild gastritis. 3. Gastric polyps. 4. Mild duodenitis. RECOMMENDATIONS: 1. Await biopsy results. 2. Observe the patient post-dilation. 3. Would recommend daily PPI therapy instead of Zantac b.i.d. [address] [address] PROCEDURE REPORT Name: DEEP BAINS Room #: REG PRAVEEN Hughes#: [id number] Admission: 08/22/19 Attend Phys: Eloy Swenson Discharge: Date of : 52 Report #: [id number] Thank you for allowing me to participate in his care. <ELECTRONICALLY SIGNED> By: Eloy Junior MD 08/29/19 0930 0940 [id number] Eloy Junior MD /nt
== END | disposition home or self-care (01) ==
LOC: GI 08:03
DX: R13.19 Other dysphagia (principal); K31.9 Disease of stomach and duodenum, unspecified; K31.7 Polyp of stomach and duodenum; K22.10 Ulcer of esophagus without bleeding; K29.80 Duodenitis without bleeding; K21.9 Gastro-esophageal reflux disease without esophagitis; I10 Essential (primary) hypertension; Z98.890 Other specified postprocedural states; Z90.49 Acquired absence of other specified parts of digestive tract; Z79.899 Other long term (current) drug therapy; Z88.0 Allergy status to penicillin; Z88.2 Allergy status to sulfonamides; Z88.8 Allergy status to other drugs, medicaments and biological substances; Z79.82 Long term (current) use of aspirin; Z91.040 Latex allergy status
CPT/HCPCS: 62110; 62900

== ENCOUNTER → 2019-09-06 | Outpatient (CLI) | payer OTHER ==
[~2019-09-06] VITALS: Ht 188 cm; Wt 104.9 kg
[2019-09-06 07:14] VITALS: BP 120/82
--- NOTE | 2019-09-06 09:17 | NUR ---
PT SLEEPING. AT BEDSIDE. VS STABLE 02 SATS 93-97% ON 6L N/C. WILL DECREASE 02 AND MONITOR.
--- NOTE | 2019-09-06 09:42 | TEE ---
[facility] [address] [place] [address] TRANSESOPHAGEAL ECHOCARDIOGRAM Name: DEEP BAINS [facility] [id number] Admission: 09/06/19 Attend Phys: Eric Putnam, Discharge: Date of : 52 Report #: [id number] THIS REPORT FOR: //name// APPROVED REPORT Study performed: 09/06/2019 08:38:49 EXAM: Transesophageal Echocardiogram with Doppler and Cardioversion Patient Location: laboratory manager holding Room #: 9 Status: routine BSA: 2.31 HR: 90 bpm BP: 120/82 mmHg Rhythm: Atrial Fibrillation Other Information Study Quality: Excellent Indications Atrial Fibrillation Echo Enhancing Agent Indication: Rule out Shunt Agent(s) / Amount(s) Used: Agitated Saline 7 cc Procedure After obtaining informed consent, patient underwent transesophageal echo in the [facility]. Type of Sedation : Conscious Sedation Sedation was administered by Ashley Presley RN. Sedation was achieved intravenously with: Versed (4 mg) Fentanyl (100 mcg) Transesophageal probe was inserted and advanced into esophagus without difficulty by Eric Putnam MD. Echo enhancement indication: R/O Septal defect. Echo enhancement agent administered: Agitated Saline The JOSELYN was performed without complications. Synchronized Cardioversion acheived with 200 Joules after 1 attempt(s). Rhythm following Synchronized Cardioversion: Normal Sinus Rhythm Throughout the procedure, the blood pressure, pulse oximetry, cardiac rhythm, and rate were monitored. The patient tolerated the procedure without adverse effects. Recovery [facility] [address] [place] [address] TRANSESOPHAGEAL ECHOCARDIOGRAM Name: DEEP BAINS [facility] #: [facility] [id number] Admission: 09/06/19 Attend Phys: Eric Putnam, Discharge: Date of : 52 Report #: [id number] from conscious sedation was uneventful and vital signs were stable. Left Ventricle The left ventricle is normal size. There is normal LV segmental wall motion. There is normal left ventricular wall thickness. The left ventricular systolic function is normal. The left ventricular ejection fraction is within the normal range. LVEF is 50-55%. Right Ventricle The right ventricle is normal size. The right ventricular systolic function is normal. Atria Left atrium is dilated. No thrombus is visualized in the left atrium or appendage. Small patent ovale with predominantly left to right shunting Right atrium is dilated. Aortic Valve The aortic valve is normal in structure. No aortic regurgitation is present. There is no aortic valvular stenosis. Mitral Valve The mitral valve is normal in structure. Mild mitral regurgitation. No evidence of mitral valve stenosis. Tricuspid Valve The tricuspid valve is normal in structure. There is no tricuspid valve regurgitation noted. Pulmonic Valve The pulmonary valve is normal in structure. There is no pulmonic valvular regurgitation. Great Vessels The aortic root is normal in size. Minimal scattered atherosclerosis IVC is normal in size and collapses >50% with inspiration. Pericardium There is no pericardial effusion. <Conclusion> The left ventricular systolic function is normal. There is normal LV segmental wall motion. LVEF is 50-55%. [facility] [address] [place] [address] TRANSESOPHAGEAL ECHOCARDIOGRAM Name: DEEP BAINS Room #: REG [facility] [id number] Admission: 09/06/19 Attend Phys: Eric Putnam, Discharge: Date of : 52 Report #: [id number] Both atria are dilated. No thrombus is visualized in the left atrium or appendage. Small patent ovale with predominantly left to right shunting The aortic valve is normal in structure. No aortic regurgitation or stenosis The mitral valve is normal in structure. Mild mitral regurgitation. Minimal scattered atherosclerosis There is no pericardial effusion. Successful cardioversion of atrial fibrillation to sinus rhythm following a single 200 J biphasic synchronous shock <ELECTRONICALLY SIGNED> By: Eric Putnam MD, FACC 09/06/19941 1 1 Eric Putnam MD, FACC /INF
--- NOTE | 2019-09-06 09:57 | NUR ---
PT SLEEPING ON LEFT SIDE. SPOUSE STATES HE SNORES LESS THIS WAY. RESPONDS TO VERBAL STIMULI. VS STABLE. 02 4L 95% SAT
== END | disposition home or self-care (01) ==
LOC: CATH 06:40
DX: I48.91 Unspecified atrial fibrillation (principal); I34.0 Nonrheumatic mitral (valve) insufficiency; I70.0 Atherosclerosis of aorta; I10 Essential (primary) hypertension; E78.5 Hyperlipidemia, unspecified; K21.9 Gastro-esophageal reflux disease without esophagitis; Z98.890 Other specified postprocedural states; Z79.899 Other long term (current) drug therapy; Z79.01 Long term (current) use of anticoagulants; Z90.49 Acquired absence of other specified parts of digestive tract; Z88.0 Allergy status to penicillin; Z88.2 Allergy status to sulfonamides; Z91.040 Latex allergy status; Z88.8 Allergy status to other drugs, medicaments and biological substances; Z79.82 Long term (current) use of aspirin

== ENCOUNTER → 2019-09-17 | Outpatient (CLI) | payer OTHER ==
--- NOTE | 2019-09-18 22:44 | SLE ---
[facility] [place] [address] POLYSOMNOGRAPHY STUDY Name: DEEP BAINS Room #: REG [facility]#: [id number] Admission: 09/17/19 Attend Phys: Fabian Rubalcava MD, Discharge: Date of : 52 Report #: [id number] THIS REPORT FOR: //name// CC: Fabian Eaton DATE OF SERVICE: 09/17/2019 HOME SLEEP STUDY ATTENDING PHYSICIAN: Dr. Fabian Rubalcava. The patient is a 68-year-old who weighs 229 pounds with a BMI of 29.4. The patient's [place] score was 9. The patient underwent home sleep study performed by [facility]. Total recording time was 538 minutes. During the night study, the patient had 27 obstructive apneas, no central or mixed apneas and 23 hypopneas. The patient's apnea hypopnea index was 7.8 per hour with a supine index of 14.6 per hour. Nocturnal oximetry study revealed an average oxygen saturation of 92% with the lowest of 86%. 27 minutes were spent in oxygen saturation less than 90%. Mean heart rate was 55 beats per minute with a maximum 81 beats per minute. IMPRESSION: 1. Mild sleep apnea-hypopnea syndrome at an AHI of 7.8 per hour. 2. Nocturnal hypoxia secondary to obstructive sleep apnea. RECOMMENDATIONS: 1. The patient has mild sleep apnea. This can be initially treated with weight loss. 2. If the patient remains clinically symptomatic or has other comorbid conditions, then the patient's sleep apnea should be treated with CPAP versus an oral appliance. 3. Once the patient is optimally treated, then follow up in 4-6 weeks to assess compliance with treatment and to document clinical improvement. 4. Avoid METALWORKER depressants. 5. Cautioned regarding driving until symptoms of sleep apnea resolve with the above recommendations. <ELECTRONICALLY SIGNED> By: Kyle Lopez MD 09/18/19 2244 1630 1802 Kyle Lopez MD /nt
== END ==
LOC: SLEEPLAB 09-15 12:06
DX: G47.33 Obstructive sleep apnea (adult) (pediatric) (principal)

== ENCOUNTER → 2020-01-11 | Outpatient (CLI) | payer OTHER ==
[~2020-01-11] VITALS: Ht 188 cm; Wt 107.5 kg
[2020-01-11 10:09] VITALS: BP 143/60
--- NOTE | 2020-01-11 10:20 | NUR ---
Pain Clinic Assessment: 1. History of Osteoarthritis: Not Applicable History of Rheumatoid Arthritis: Not Applicable 2. Height: 6 ft. 2 in. 188.0 cm. Weight: 237.0 lb. oz. 107.503 kg. Patient's BMI: 30.4 3. Vital Signs: BP: 143/60 Pulse: 67 Resp: 20 Temp: 02 Sat: 96 ECG Mon: 4. Pain Intensity: 5 5. Fall Risk: Dizziness: N Needs help standing or walking: N Fallen in the last 3 months: N Fall risk comments: 6. Patient on Blood Thinner: None 7. History of Hypertension: N 8. Opioid Therapy greater than 6 weeks: N Opiate Contract Signed: 9. Risk Assessment Tool Provided: LOW RISK 0/3 10. Functional Assessment Tool: 11. Recreational Drug Use: Never Drug Type: Tobacco Use: Never Smoker Tobacco Type: Amount or Packs/day: How Many Years: Alcohol Use: Yes Frequency: Quant:
--- NOTE | 2020-01-18 16:39 | HPC ---
[facility] [address] [place] [address] PAIN MANAGEMENT CONSULTATION Name: DEEP BAINS Room #: REG Nikko HerreraDonny#: [id number] Admission: 01/11/20 Attend Phys: Tammy Pelaez MD Discharge: Date of : 52 Report #: [id number] THIS REPORT FOR: cc: Yrn Eaton MD, Neal A. MD Brown,Tammy Kincaid MD ~ CC: Tammy Eaton DATE OF SERVICE: 01/11/2020 CHIEF COMPLAINT: Pain in the left hand and neck. HISTORY: The patient is a 69-year-old gentleman who has been followed in the pain clinic because of chronic pain. He has had problems with cervical radiculopathy. He has had problems with lumbar radiculopathy. He has noticed a recurrence of pain and discomfort. He had surgery for a second time and noted improvement in the cervical area. In about 07/2019, he was painting. 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 He states that he noted some increased discomfort after painting the house. He also had recent worsening of his discomfort after helping his son-in-law. They were doing some activities up in the area of the attic. He was helping him in holding items over his head. Since that time, he has experienced pain that has been radiating down into his neck, hand with numbness, tingling, and weakness and has returned today for another cervical epidural steroid injection to help decrease his pain and discomfort. ALLERGIES: LATEX, TAPE, PENICILLIN, SULFA. CURRENT MEDICATIONS: Metoprolol 100 mg, Prilosec 20 mg, Flonase 0.05%, calcium 500 mg, Flomax 0.4 mg, meloxicam 15 mg, and aspirin 81 mg. PAIN CLINIC ASSESSMENT AND PQRS: 1. The patient is not being treated for rheumatoid arthritis. He does have some arthritic changes in his left shoulder as well as his neck. 2. Height 6 feet 2 inches, weight 237 pounds, BMI is 30. 3. Vital Signs: Blood pressure 143/60, pulse 67, respiratory rate 20, room air saturation 96%. 4. Pain intensity /10. 5. Fall history: The patient has not fallen in the last 3 months. 6. Blood thinner. The patient is not on a blood thinning medication. 7. Hypertension. The patient is not being treated for hypertension. 8. Opioids greater than 6 weeks. The patient receives medication from one physician. 9. Risk assessment tool, low for opioid use. 10. Functional assessment tool . 11. Recreational drug use: The patient denies. [address] [address] PAIN MANAGEMENT CONSULTATION Name: DEEP BAINS [id number] Admission: 01/11/20 Attend Phys: Tammy Pelaez MD Discharge: Date of : 52 Report #: [id number] 12. Tobacco: The patient has never smoked. 13. Alcohol: The patient denies frequent use of alcoholic beverages. PHYSICAL EXAMINATION: GENERAL: The patient is a well-developed, well-nourished white male. Appears his stated age. He is alert and oriented x 3. His affect is appropriate. Speech is fluent. MUSCULOSKELETAL: The patient has pain and discomfort in the left shoulder and neck. Has a positive Spurling sign. HEENT: Normocephalic, atraumatic. Extraocular eye muscles intact. Sclerae nonicteric. Mucous membranes are moist. NECK: Some limitation in movement. Cervical extension, flexion, rotation, left and right can increase pain and discomfort with pain in his left arm. LUNGS: Clear to auscultation. HEART: Regular rate. ABDOMEN: Nontender. MUSCULOSKELETAL: The patient without significant scoliosis, kyphosis or lordosis. EXTREMITIES: Upper extremity muscle strength judged to be 5-/5 for the major muscle groups in the upper extremities. The patient has pain and discomfort that radiates down to his left hand with numbness and tingling involving his fingers. IMPRESSION: 1. History of cervical radiculopathy, status post second cervical intervention greater than a few years ago with return of cervical pain after physical activity. 2. History of lumbar radiculopathy, L4-L5 distribution in the past. 3. History of sacroiliac joint dysfunction. RECOMMENDATIONS: We discussed treatment options with the patient. Risks and benefits of an injection in the cervical area were discussed. Possible complications of the procedure, which could include but are not limited to infection, worsening pain, no improvement in pain, nerve damage, bleeding, and the patient elects to proceed. PROCEDURE NOTE: The patient was taken to the procedure area. He was then assisted in getting on examination table. His neck was sterilely prepped with a Betadine solution and allowed to dry. A pillow was placed under the chest to improve positioning. Fluoroscopy using anterior, posterior as well as lateral viewing were implemented. The patient's neck was infiltrated at C7-T1 after it had been sterilely prepped and the Betadine allowed to dry. A 25-gauge needle was used to anesthetize this area with 0.25% bupivacaine. A 17-gauge Tuohy with loss of resistance technique was then used to gain access to the epidural space. There was no CSF, heme or paresthesia. 120 mg triamcinolone [address] [place] [address] PAIN MANAGEMENT CONSULTATION Name: DEEP BAINS Room #: REG [facility].#: [id number] Admission: 01/11/20 Attend Phys: Tammy Pelaez MD Discharge: Date of : 52 Report #: [id number] was injected. The patient tolerated the procedure well. There were no complications. Approximately 20 seconds fluoroscopy time was used. He will follow up in the future as needed. We would like to thank you for letting us participate in his care. We hope he continues to improve. <ELECTRONICALLY SIGNED> By: Tammy Pelaez MD 01/18/20 1639 1426 1520 Tammy Pelaez MD /TEA
== END | disposition home or self-care (01) ==
LOC: PAIN 09:06
DX: M54.2 Cervicalgia (principal); G89.29 Other chronic pain; Z98.890 Other specified postprocedural states; Z79.899 Other long term (current) drug therapy; Z91.040 Latex allergy status; Z88.0 Allergy status to penicillin; Z88.2 Allergy status to sulfonamides

== ENCOUNTER → 2020-03-03 | Outpatient (CLI) | payer OTHER | LOC: MRI 02-29 09:42 | DX: M19.012 Primary osteoarthritis, left shoulder (principal); S46.912A Strain of unspecified muscle, fascia and tendon at shoulder and upper arm level, left arm, initial encounter; M75.42 Impingement syndrome of left shoulder; X58.XXXA Exposure to other specified factors, initial encounter; Y93.89 Activity, other specified; Y92.89 Other specified places as the place of occurrence of the external cause; Y99.8 Other external cause status ==

== ENCOUNTER 2020-03-22 19:38 | Emergency (ER) | payer OTHER ==
[~2020-03-22] VITALS: Ht 188 cm; Wt 102.1 kg
[2020-03-22] MEDS ORDERED: MOBIC15 MG PO (21:20)
[2020-03-22 21:30] VITALS: BP 140/79
== END 2020-03-22 21:59 | disposition home or self-care (01) ==
LOC: ER 19:38
DX: M65.322 Trigger finger, left index finger (principal); I48.91 Unspecified atrial fibrillation; I10 Essential (primary) hypertension; K21.9 Gastro-esophageal reflux disease without esophagitis; E78.5 Hyperlipidemia, unspecified; Z98.890 Other specified postprocedural states; Z79.899 Other long term (current) drug therapy; Z79.82 Long term (current) use of aspirin; Z91.040 Latex allergy status; Z88.0 Allergy status to penicillin; Z88.2 Allergy status to sulfonamides; Z90.49 Acquired absence of other specified parts of digestive tract

== ENCOUNTER → 2020-03-26 | Outpatient (CLI) | payer OTHER | LOC: CAT 09:30 | DX: M19.042 Primary osteoarthritis, left hand (principal); M25.742 Osteophyte, left hand ==

== ENCOUNTER → 2020-04-01 | Outpatient (CLI) | payer OTHER | LOC: LAB 11:31 | PROVIDERS: ATTEND Anesthesiology | DX: Z01.812 Encounter for preprocedural laboratory examination (principal); Z11.59 Encounter for screening for other viral diseases ==

== ENCOUNTER → 2020-05-15 | Outpatient (CLI) | payer OTHER ==
[2020-05-15 13:25] LABS: URINE BILIRUBIN NEGATIVE (Negative); URINE BLOOD TRACE (Negative); URINE CLARITY CLEAR; URINE COLOR YELLOW; URINE GLUCOSE-RANDOM* NEGATIVE (Negative); URINE KETONES NEGATIVE (Negative); URINE LEUKOCYTES-REFLEX NEGATIVE (Negative); URINE NITRITE-REFLEX NEGATIVE (Negative); URINE PROTEIN (DIPSTICK) NEGATIVE (Negative); URINE UROBILINOGEN 0.2 E.U./dl (0.2-1.0)
[2020-05-15 13:27] LABS: ABSOLUTE NEUTROPHILS 3.6 thou/uL (1.4-8.2); BASOPHILS 0.4 % (0.0-2.0); EOSINOPHILS 1.1 % (0.0-3.0); HEMATOCRIT 46.7 % (42.0-52.0); LYMPHOCYTES 33.1 % (24.0-44.0); MCH 33.3 pg (26.0-34.0); MCHC 34.2 g/dL (28.0-37.0); MCV 97.5 fL (80.0-100.0); MONOCYTES 9.2 % (1.0-8.0); PLATELET COUNT 283 thou/uL (150-400); POLYS 56.2 % (36.0-66.0); RBC 4.79 mil/uL (4.50-6.00); RDW 13.4 % (10.5-14.5); WBC 6.4 thou/uL (4.0-11.0)
[2020-05-15 13:45] LABS: ALBUMIN 4.5 g/dL (3.4-5.0); ANION GAP 11 mmol/L (7-16); BUN 19 mg/dL (7-18); CALCIUM 9.8 mg/dL (8.5-10.1); CHLORIDE 104 mmol/L (98-107); CHOLESTEROL 172 mg/dL (<200); CO2 27 mmol/L (21-32); CREATININE 0.9 mg/dL (0.7-1.3); GLUCOSE 87 mg/dL (74-106); HDL CHOLESTEROL 42 mg/dL (>40); LDL CHOLESTEROL 103 mg/dL (<100); POTASSIUM 4.3 mmol/L (3.5-5.1); SGOT 22 U/L (15-37); SGPT 40 U/L (30-65); SODIUM 142 mmol/L (136-145); TC:HDL 4.1 Ratio (Not establshd); TOTAL BILIRUBIN 0.9 mg/dL (0.2-1.0); TOTAL PROTEIN 7.6 g/dL (6.4-8.2); TRIGLYCERIDE 135 mg/dL (<150); VLDL 27 mg/dL (<40)
== END ==
LOC: LAB 11:55
PROVIDERS: ATTEND Family Medicine
DX: K21.0 Gastro-esophageal reflux disease with esophagitis (principal); Z00.00 Encounter for general adult medical examination without abnormal findings; I10 Essential (primary) hypertension

== ENCOUNTER → 2020-08-20 | Outpatient (CLI) | payer OTHER ==
[~2020-08-20] VITALS: Ht 188 cm; Wt 106.1 kg
[~2020-08-20] MED LIST changes: +VITAMIN D-40010 MCG PO
[2020-08-20 12:28] VITALS: BP 141/72
--- NOTE | 2020-08-20 12:34 | NUR ---
Pain Clinic Assessment: 1. History of Osteoarthritis: Not Applicable History of Rheumatoid Arthritis: Not Applicable 2. Height: 6 ft. 2 in. 188.0 cm. Weight: 233.8 lb. oz. 106.051 kg. Patient's BMI: 30.0 3. Vital Signs: BP: 141/72 Pulse: 68 Resp: 18 Temp: 02 Sat: 96 ECG Mon: 4. Pain Intensity: 7 5. Fall Risk: Dizziness: N Needs help standing or walking: N Fallen in the last 3 months: N Fall risk comments: 6. Patient on Blood Thinner: None 7. History of Hypertension: N 8. Opioid Therapy greater than 6 weeks: N Opiate Contract Signed: 9. Risk Assessment Tool Provided: LOW RISK 0/3 10. Functional Assessment Tool: 11. Recreational Drug Use: Never Drug Type: Tobacco Use: Never Smoker Tobacco Type: Amount or Packs/day: How Many Years: Alcohol Use: No Frequency: Quant:
--- NOTE | 2020-08-26 14:38 | HPC ---
[facility] [address] [place] [address] PAIN MANAGEMENT CONSULTATION Name: DEEP BAINS Room #: REG Nikko HerreraDonny#: [id number] Admission: 08/20/20 Attend Phys: Tammy Pelaez MD Discharge: Date of : 52 Report #: [id number] CC: Tammy Eaton DATE OF SERVICE: 08/20/2020 PRIMARY CARE PHYSICIAN: Yrn Eaton MD CHIEF COMPLAINT: "I have been doing a lot at home of painting and working around the house. I have noticed increased pain and discomfort in my neck and my back, I would like to have my neck injected." HISTORY: The patient is a 69-year-old gentleman who has been followed in the pain clinic because of cervical radiculopathy as well as history of lumbar radiculopathy. At this juncture, he has noticed more pain and discomfort involving his neck and arm. He states that he has been doing more work around his house. He has been doing painting and other activities. Overall, this has increased his level of pain and discomfort. He rates his pain as a 7/10. Pain is radiating down in both arms and into his thumb. He also has had some right facial pain that starts at the base of his ear and radiates down into his jaw line. The back pain radiates down into his legs and involves his toes. He notes that lifting his arms, moving his neck, looking up and down, coughing and sneezing can exacerbate his discomfort. Notes that the pain improves somewhat when he is in the Jacuzzi as well as using a heating pad. He is contemplating going to [place] to ride a motorcycle in the [place] with his friend. He has elected to have a cervical epidural steroid injection at this juncture. ALLERGIES: LATEX, TAPE, PENICILLIN, SULFA. CURRENT MEDICATIONS: Metoprolol 100 mg, Prilosec 20 mg, Flonase 0.05%, calcium 500 mg, Flomax 0.4 mg, meloxicam 15 mg, and aspirin 81 mg. PAIN CLINIC ASSESSMENT AND PQRS: 1. The patient is not being treated for rheumatoid arthritis. He does have some osteoarthritic changes involving his neck. He has had surgical intervention with plates and fusion in the neck area. 2. Height 6 feet 2 inches, weight 233 pounds. 3. Vital signs: Blood pressure 141/72, pulse 68, respiratory rate 18, room air saturation 96. 4. Pain intensity 7/10. 5. Fall history: The patient has not fallen in the last 3 months. 6. Blood thinner. The patient is not on a blood thinning medication. 7. Hypertension. The patient is not being treated for hypertension. 8. Opioids. The patient receives medications from the pain clinic on occasion. 9. Risk assessment tool, low for opioid use. 10. Functional assessment tool 33/70. 11. Recreational drug use: The patient denies. 12. Tobacco: The patient has never smoked tobacco. 13. Alcohol. The patient denies use of alcoholic beverages. PHYSICAL EXAMINATION: GENERAL: The patient is a well-developed, well-nourished white male. Appears his stated age. He is alert and oriented x 3. His affect is appropriate. Speech is fluent. HEENT: Normocephalic, atraumatic. Extraocular eye muscles intact. Sclerae nonicteric. NECK: Without adenopathy or JVD. HEENT: Normocephalic, atraumatic. Extraocular eye muscles intact. The patient is wearing a facial covering. LUNGS: Clear to auscultation. HEART: Regular rate. ABDOMEN: Nontender. MUSCULOSKELETAL: The patient without significant scoliosis, kyphosis or lordosis. The patient does complain of pain and discomfort in the upper extremities with pain radiating down into both hands involving his fingers. EXTREMITIES: Lower extremity muscle strength judged to be 5/5 for the major muscle groups in the lower extremity. The patient has pain that radiates down into the low back area and down into involving his toes bilaterally. IMPRESSION: 1. History of cervical radiculopathy, status post second greater cervical intervention. 2. History of lumbar radicular pain, L4-L5 dermatomal distribution in the past. 3. History of sacroiliac joint dysfunction. RECOMMENDATIONS: We discussed treatment options with the patient. Risks and benefits of a cervical epidural steroid injection were discussed. Possible complications of the procedure, which could include but are not limited to infection, worsening of pain, no improvement in pain, nerve damage, bleeding were discussed. The patient is aware that COVID-19 is pandemic. Steroid injections can decrease one's immunity. The patient is aware and elects to proceed. PROCEDURE NOTE: The patient was taken to the procedure area. He was then assisted in getting on the examination table. A pillow was placed under his chest. Fluoroscopy was used to identify the C7-T1 interspace. A total of 3 mL of 0.5% bupivacaine was injected using a 25-gauge needle to anesthetize the area. A 17-gauge Tuohy with loss of resistance technique was used to gain access to the epidural space. There was no CSF, heme or paresthesia. A total of 120 mg triamcinolone was injected. The patient tolerated the procedure well. Fluoroscopy using anterior as well as lateral viewing were corroborated the appropriate placement of the medication. The patient remained in the pain clinic for an appropriate amount of time. A total of 20 seconds fluoroscopy time was used. The patient will follow up in the future. We would like to thank you for letting us participate in his care. We hope he continues to improve. <ELECTRONICALLY SIGNED> By: Tammy Pelaez MD 08/26/20 1438 1623 0213 Tammy Pelaez MD /[facility]
== END | disposition home or self-care (01) ==
LOC: PAIN 06:53
PROVIDERS: ATTEND Anesthesiology Pain Medicine
DX: M54.12 Radiculopathy, cervical region (principal); M54.2 Cervicalgia; G89.29 Other chronic pain; Z98.890 Other specified postprocedural states; Z79.899 Other long term (current) drug therapy; Z91.040 Latex allergy status; Z88.2 Allergy status to sulfonamides; Z91.041 Radiographic dye allergy status

== ENCOUNTER → 2020-10-08 | Outpatient (CLI) | payer OTHER | LOC: LAB 13:18 | PROVIDERS: ATTEND Nurse Practitioner | DX: Z20.828 Contact with and (suspected) exposure to other viral communicable diseases (principal) ==

== ENCOUNTER → 2020-10-29 | Outpatient (CLI) | payer OTHER ==
[~2020-10-29] VITALS: Ht 188 cm; Wt 103.7 kg
[2020-10-29 14:47] VITALS: BP 140/75
--- NOTE | 2020-10-29 15:11 | NUR ---
Pain Clinic Assessment: 1. History of Osteoarthritis: Not Applicable History of Rheumatoid Arthritis: Not Applicable 2. Height: 6 ft. 2 in. 188.0 cm. Weight: 227.2 lb. 22 oz. 103.681 kg. Patient's BMI: 29.3 3. Vital Signs: BP: 140/75 Pulse: 68 Resp: 16 Temp: 02 Sat: 100 ECG Mon: 4. Pain Intensity: 9 5. Fall Risk: Dizziness: N Needs help standing or walking: N Fallen in the last 3 months: N Fall risk comments: 6. Patient on Blood Thinner: None 7. History of Hypertension: N 8. Opioid Therapy greater than 6 weeks: N Opiate Contract Signed: 9. Risk Assessment Tool Provided: LOW RISK 0/3 10. Functional Assessment Tool: 11. Recreational Drug Use: Never Drug Type: Tobacco Use: Never Smoker Tobacco Type: Amount or Packs/day: How Many Years: Alcohol Use: No Frequency: Quant:
== END | disposition home or self-care (01) ==
LOC: PAIN 06:56
PROVIDERS: ATTEND Anesthesiology Pain Medicine
DX: M54.16 Radiculopathy, lumbar region (principal); G89.29 Other chronic pain; I10 Essential (primary) hypertension; E78.5 Hyperlipidemia, unspecified; I48.91 Unspecified atrial fibrillation; K21.9 Gastro-esophageal reflux disease without esophagitis; Z98.890 Other specified postprocedural states; Z79.899 Other long term (current) drug therapy; Z90.49 Acquired absence of other specified parts of digestive tract; Z88.0 Allergy status to penicillin; Z91.040 Latex allergy status; Z88.2 Allergy status to sulfonamides

== ENCOUNTER 2020-11-17 15:29 | Emergency (ER) | payer OTHER ==
[~2020-11-17] VITALS: Ht 177.8 cm; Wt 90.7 kg
[2020-11-17 16:52] LABS: ABSOLUTE NEUTROPHILS 10.8 thou/uL (1.4-8.2); BASOPHILS 0.2 % (0.0-2.0); EOSINOPHILS 0.2 % (0.0-3.0); HEMATOCRIT 45.2 % (42.0-52.0); HEMOGLOBIN 14.9 gm/dL (14.0-18.0); LYMPHOCYTES 6.6 % (24.0-44.0); MCH 32.1 pg (26.0-34.0); MCHC 32.9 g/dL (28.0-37.0); MCV 97.6 fL (80.0-100.0); PLATELET COUNT 267 thou/uL (150-400); RBC 4.63 mil/uL (4.50-6.00); RDW 13.5 % (10.5-14.5); WBC 12.6 thou/uL (4.0-11.0)
[2020-11-17 17:09] LABS: CALCIUM 9.1 mg/dL (8.5-10.1); CREATININE 0.8 mg/dL (0.7-1.3); POTASSIUM 3.8 mmol/L (3.5-5.1)
[2020-11-17 17:13] LABS: ALBUMIN 4.1 g/dL (3.4-5.0); TOTAL BILIRUBIN 0.6 mg/dL (0.2-1.0); TOTAL PROTEIN 7.5 g/dL (6.4-8.2)
[2020-11-17 18:15] LABS: URINE BILIRUBIN NEGATIVE (Negative); URINE BLOOD 1+ (Negative); URINE CLARITY CLEAR; URINE COLOR YELLOW; URINE GLUCOSE-RANDOM* NEGATIVE (Negative); URINE KETONES NEGATIVE (Negative); URINE LEUKOCYTES-REFLEX NEGATIVE (Negative); URINE NITRITE-REFLEX NEGATIVE (Negative); URINE PROTEIN (DIPSTICK) NEGATIVE (Negative); URINE SPECIFIC GRAVITY <= 1.005 (1.005-1.035); URINE UROBILINOGEN 0.2 E.U./dl (0.2-1.0)
[2020-11-17 18:28] LABS: BACTERIA-REFLEX None Seen /HPF (None Seen); CASTS None Seen /LPF (None Seen); CRYSTALS None Seen /LPF (None Seen); SQUAMOUS None Seen /LPF (0-3); URINE RBC None Seen /HPF (0-2); URINE WBC-REFLEX None Seen /HPF (0-5)
[2020-11-17] MEDS ORDERED: ONDANSETRON HCL4 M2 PO (19:47)
[2020-11-17 19:52] VITALS: BP 136/70
== END 2020-11-17 19:54 | disposition home or self-care (01) ==
LOC: ER 15:29
PROVIDERS: Physician Assistant
DX: R50.9 Fever, unspecified (principal); Z20.828 Contact with and (suspected) exposure to other viral communicable diseases; R11.0 Nausea; R10.9 Unspecified abdominal pain; I10 Essential (primary) hypertension; K21.9 Gastro-esophageal reflux disease without esophagitis; Z91.040 Latex allergy status; Z88.5 Allergy status to narcotic agent; Z88.0 Allergy status to penicillin; Z88.2 Allergy status to sulfonamides; Z79.899 Other long term (current) drug therapy; Z79.82 Long term (current) use of aspirin; Z90.49 Acquired absence of other specified parts of digestive tract

== ENCOUNTER → 2020-12-23 | Outpatient (CLI) | payer OTHER ==
[~2020-12-23] MED LIST changes: +ONDANSETRON HCL4 M2 PO
[2020-12-23 10:06] LABS: ABSOLUTE NEUTROPHILS 3.4 thou/uL (1.4-8.2); BASOPHILS 0.3 % (0.0-2.0); EOSINOPHILS 1.5 % (0.0-3.0); HEMATOCRIT 43.6 % (42.0-52.0); HEMOGLOBIN 14.4 gm/dL (14.0-18.0); LYMPHOCYTES 30.3 % (24.0-44.0); MCH 32.2 pg (26.0-34.0); MCV 97.6 fL (80.0-100.0); MONOCYTES 10.9 % (1.0-8.0); PLATELET COUNT 282 thou/uL (150-400); RBC 4.46 mil/uL (4.50-6.00); RDW 13.2 % (10.5-14.5)
[2020-12-23 10:17] LABS: CHOLESTEROL 125 mg/dL (<200); HDL CHOLESTEROL 47 mg/dL (>40); LDL CHOLESTEROL 62 mg/dL (<100); TC:HDL 2.7 Ratio (Not establshd); TRIGLYCERIDE 82 mg/dL (<150); VLDL 16 mg/dL (<40)
== END ==
LOC: LAB 09:31
PROVIDERS: ATTEND Internal Medicine Cardiovascular Disease
DX: E78.00 Pure hypercholesterolemia, unspecified (principal)

== ENCOUNTER → 2021-01-30 | Outpatient (CLI) | payer OTHER ==
[~2021-01-30] VITALS: Ht 188 cm; Wt 102.7 kg
[2021-01-30 13:03] VITALS: BP 116/84
--- NOTE | 2021-01-30 13:10 | NUR ---
Pain Clinic Assessment: 1. History of Osteoarthritis: Not Applicable History of Rheumatoid Arthritis: Not Applicable 2. Height: 6 ft. 2 in. 188.0 cm. Weight: 226.4 lb. oz. 102.695 kg. Patient's BMI: 29.1 3. Vital Signs: BP: 116/84 Pulse: 74 Resp: 14 Temp: 02 Sat: 97 ECG Mon: 4. Pain Intensity: 7-8 W/ACTIVITY 5. Fall Risk: Dizziness: N Needs help standing or walking: N Fallen in the last 3 months: N Fall risk comments: 6. Patient on Blood Thinner: None 7. History of Hypertension: N 8. Opioid Therapy greater than 6 weeks: N Opiate Contract Signed: 9. Risk Assessment Tool Provided: LOW RISK 0/3 10. Functional Assessment Tool: 11. Recreational Drug Use: Never Drug Type: Tobacco Use: Never Smoker Tobacco Type: Amount or Packs/day: How Many Years: Alcohol Use: No Frequency: Quant:
== END ==
LOC: PAIN 07:02
PROVIDERS: ATTEND Anesthesiology Pain Medicine
DX: M54.5 Low back pain (principal); M79.10 Myalgia, unspecified site; Z87.39 Personal history of other diseases of the musculoskeletal system and connective tissue

== ENCOUNTER → 2021-03-20 | Outpatient (CLI) | payer OTHER ==
[~2021-03-20] VITALS: Ht 188 cm; Wt 102.3 kg
[2021-03-20 12:41] VITALS: BP 113/70
--- NOTE | 2021-03-20 12:56 | NUR ---
Pain Clinic Assessment: 1. History of Osteoarthritis: Not Applicable History of Rheumatoid Arthritis: Not Applicable 2. Height: 6 ft. 2 in. 188.0 cm. Weight: 225.6 lb. oz. 102.332 kg. Patient's BMI: 29.0 3. Vital Signs: BP: 113/70 Pulse: 64 Resp: 16 Temp: 02 Sat: 99 ECG Mon: 4. Pain Intensity: 7 5. Fall Risk: Dizziness: N Needs help standing or walking: N Fallen in the last 3 months: N Fall risk comments: 6. Patient on Blood Thinner: None 7. History of Hypertension: N 8. Opioid Therapy greater than 6 weeks: N Opiate Contract Signed: 9. Risk Assessment Tool Provided: LOW RISK 0/3 10. Functional Assessment Tool: 11. Recreational Drug Use: Never Drug Type: Tobacco Use: Never Smoker Tobacco Type: Amount or Packs/day: How Many Years: Alcohol Use: No Frequency: Quant:
== END | disposition home or self-care (01) ==
LOC: PAIN 07:24
PROVIDERS: ATTEND Anesthesiology Pain Medicine
DX: M53.3 Sacrococcygeal disorders, not elsewhere classified (principal); M79.18 Myalgia, other site; I10 Essential (primary) hypertension; E78.5 Hyperlipidemia, unspecified; I48.91 Unspecified atrial fibrillation; Z98.890 Other specified postprocedural states; Z79.899 Other long term (current) drug therapy; Z90.49 Acquired absence of other specified parts of digestive tract; Z79.01 Long term (current) use of anticoagulants; Z91.040 Latex allergy status; Z88.0 Allergy status to penicillin; Z88.2 Allergy status to sulfonamides; Z88.6 Allergy status to analgesic agent

== ENCOUNTER → 2021-04-15 | Outpatient (CLI) | payer OTHER ==
[2021-04-15 12:47] LABS: CREATININE 0.9 mg/dL (0.7-1.3)
== END ==
LOC: CAT 09:27
PROVIDERS: ATTEND Nurse Practitioner
DX: D71 Functional disorders of polymorphonuclear neutrophils (principal); R05 Cough

== ENCOUNTER → 2021-04-29 | Outpatient (CLI) | payer OTHER ==
[~2021-04-29] VITALS: Ht 188 cm; Wt 101.2 kg
[~2021-04-29] MED LIST changes: +NEXLIZET 180-11 EACH PO
--- NOTE | 2021-05-01 08:28 | P ---
[facility] [place] [address] PROCEDURE REPORT Name: DEEP BAINS Room #: REG [facility] Ellen#: [id number] Admission: 04/29/21 Attend Phys: Eloy Swenson Discharge: Date of : 52 Report #: [id number] THIS REPORT FOR: cc: Yrn Eaton MD, Neal A. MD McElhinney, Christian C. MD ~ DOC #: [id number] cc: MD Eloy Mcdonald MD DATE OF SERVICE: 04/29/2021 PROCEDURE PERFORMED: Upper endoscopy with biopsies and esophageal dilation. HISTORY OF PRESENT ILLNESS: The patient is a 70-year-old male with a history of gastroesophageal reflux disease, underwent an upper endoscopy by myself in 2019 for heartburn as well as dysphagia. Savary dilation was performed at that time, which was helpful. He is having recurrent dysphagias at times. He was switched from Zantac b.i.d. to PPI therapy as he had grade B erosive esophagitis at that time. He denies any heartburn symptoms currently. He has had a recent chronic cough. Workup has included reportedly a chest x-ray, CT scan of the chest. 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 Cough is now better. Etiology of the cough is still unclear. Plan is for upper endoscopy. DESCRIPTION OF PROCEDURE: The risks and benefits of the procedure were explained to the patient, those risks including but not limited to bleeding, perforation and the risk of sedation. He understood these risks and gave informed consent. Sedation was given using propofol per anesthesia. Next, using a standard Olympus upper endoscope, the scope was placed in the patient's mouth and advanced under direct vision through the esophagus, stomach and into the second portion of the duodenum. The larynx was normal in appearance. The esophagus was normal throughout. The GE junction was normal. No evidence of esophagitis or stricture. In the stomach, multiple small gastric polyps were noted. Biopsies were obtained. Otherwise, normal gastric mucosa. The pylorus was normal and patent. The duodenal bulb, first and second portion were all normal. The scope was then brought back up into the patient's stomach and a Savary guidewire was inserted through the scope, leaving the guidewire in place as the scope was then withdrawn. Next, a 51-Maori Savary dilation of the esophagus was performed without difficulty. The wire and dilator removed. The scope was reintroduced into the patient's stomach. There was no evidence of mucosal tear after dilation. The scope was then withdrawn and the procedure terminated. The patient tolerated the procedure well. IMPRESSION: 1. Small gastric polyps. [address] [address] PROCEDURE REPORT Name: DEEP BAINS Room #: REG [facility] Ellen#: [id number] Admission: 04/29/21 Attend Phys: Eloy Swenson Discharge: Date of : 52 Report #: [id number] 2. Otherwise, normal upper endoscopy. RECOMMENDATIONS: 1. Await biopsy results. 2. Continue daily PPI therapy. 3. Observe the patient post-dilation. Thank you for allowing me to participate in his care. Eloy Junior MD [facility]/ALL <ELECTRONICALLY SIGNED> By: Eloy Junior MD 05/01/21 0828 0739 Eloy Junior MD /nt
--- NOTE | 2021-05-04 18:06 | PATH ---
[facility] [address] [place] [address] PATHOLOGY RPT PROCEDURE Name: DEEP BAINS [facility] [id number] Admission: 04/29/21 Date of : 52 Discharge: Report #: [id number] Path Case #: [id number] [facility] Accession Number: [id number] . 01 Material submitted: . gastrointestinal site - BIOPSY GASTRIC POLYPS . 01 Clinical history: . EGD COUGH/DYSPHAGIA . 02 Diagnosis: Polyps, gastric polyps, endoscopic biopsy: - Fundic glands polyps. - Negative for dysplasia. (IUV:pit; 05/04/2021) QTP 05/04/2021 1515 Local . 02 Electronically signed: . Nahomi Pagan MD, Pathologist NPI- [id number] . 01 Gross description: . The specimen is received in formalin, labeled "Deep Bains BX gastric polyp". Received are 3 segments of pale shore tissue ranging in size from 0.2 to 0.4 cm in maximum dimensions. The specimen is submitted entirely in cassette A1.([facility]; 05/01/2021) [facility] 05/01/2021 1524 Local . 02 Pathologist provided ICD-10: K31.7 . 02 CPT . 053720 Specimen Comment: A courtesy copy of this report has been sent to [phone] Specimen Comment: [phone] Specimen Comment: Report sent to / DR SANTOS Performed at: [address], [place], [place] [id number] MD Som Addison MD Phone: [phone] Performed at: [address] [id number] MD Nahomi Pagan MD Phone: [phone]
== END | disposition home or self-care (01) ==
LOC: GI 06:53
PROVIDERS: ATTEND Specialist
DX: K21.9 Gastro-esophageal reflux disease without esophagitis (principal); K31.7 Polyp of stomach and duodenum; R05 Cough; I10 Essential (primary) hypertension; E78.5 Hyperlipidemia, unspecified; G47.30 Sleep apnea, unspecified; Z98.890 Other specified postprocedural states; Z79.899 Other long term (current) drug therapy; Z91.040 Latex allergy status; Z88.0 Allergy status to penicillin; Z88.2 Allergy status to sulfonamides; Z88.8 Allergy status to other drugs, medicaments and biological substances
CPT/HCPCS: 62110; 62900

== ENCOUNTER → 2021-05-26 | Outpatient (CLI) | payer OTHER ==
[2021-05-26 13:07] LABS: ABSOLUTE NEUTROPHILS 3.1 thou/uL (1.4-8.2); BASOPHILS 0.4 % (0.0-2.0); EOSINOPHILS 1.4 % (0.0-3.0); HEMATOCRIT 44.4 % (42.0-52.0); HEMOGLOBIN 14.9 gm/dL (14.0-18.0); MCH 32.5 pg (26.0-34.0); MCHC 33.5 g/dL (28.0-37.0); MCV 96.8 fL (80.0-100.0); MONOCYTES 11.6 % (1.0-8.0); PLATELET COUNT 284 thou/uL (150-400); POLYS 52.6 % (36.0-66.0); RBC 4.59 mil/uL (4.50-6.00); RDW 13.8 % (10.5-14.5)
[2021-05-26 13:13] LABS: URINE BILIRUBIN NEGATIVE (Negative); URINE BLOOD TRACE (Negative); URINE CLARITY CLEAR; URINE COLOR YELLOW; URINE GLUCOSE-RANDOM* NEGATIVE (Negative); URINE KETONES NEGATIVE (Negative); URINE LEUKOCYTES-REFLEX NEGATIVE (Negative); URINE NITRITE-REFLEX NEGATIVE (Negative); URINE PROTEIN (DIPSTICK) NEGATIVE (Negative); URINE UROBILINOGEN 0.2 E.U./dl (0.2-1.0)
[2021-05-26 13:26] LABS: ALBUMIN 4.4 g/dL (3.4-5.0); ANION GAP 7 mmol/L (7-16); BUN 23 mg/dL (7-18); CALCIUM 9.1 mg/dL (8.5-10.1); CHLORIDE 108 mmol/L (98-107); CHOLESTEROL 134 mg/dL (<200); CO2 30 mmol/L (21-32); CREATININE 0.9 mg/dL (0.7-1.3); GLUCOSE 89 mg/dL (74-106); HDL CHOLESTEROL 44 mg/dL (>40); LDL CHOLESTEROL 75 mg/dL (<100); POTASSIUM 4.4 mmol/L (3.5-5.1); SGOT 35 U/L (15-37); SGPT 44 U/L (30-65); SODIUM 145 mmol/L (136-145); TOTAL BILIRUBIN 0.7 mg/dL (0.2-1.0); TOTAL PROTEIN 7.7 g/dL (6.4-8.2); TRIGLYCERIDE 79 mg/dL (<150); VLDL 16 mg/dL (<40)
== END ==
LOC: LAB 12:06
PROVIDERS: ATTEND Family Medicine
DX: Z00.00 Encounter for general adult medical examination without abnormal findings (principal); I10 Essential (primary) hypertension; I48.0 Paroxysmal atrial fibrillation; G47.33 Obstructive sleep apnea (adult) (pediatric); E78.00 Pure hypercholesterolemia, unspecified; Z99.89 Dependence on other enabling machines and devices

== ENCOUNTER → 2021-06-23 | Outpatient (CLI) | payer OTHER | LOC: SJCVCIMAG 09:11 | PROVIDERS: ATTEND Internal Medicine Cardiovascular Disease | DX: I34.0 Nonrheumatic mitral (valve) insufficiency (principal); I48.91 Unspecified atrial fibrillation ==

== ENCOUNTER → 2021-07-17 | Outpatient (CLI) | payer OTHER | LOC: RAD 14:26 | PROVIDERS: ATTEND Nurse Practitioner | DX: S44.92XA Injury of unspecified nerve at shoulder and upper arm level, left arm, initial encounter (principal); X58.XXXA Exposure to other specified factors, initial encounter; Y92.89 Other specified places as the place of occurrence of the external cause; Y93.89 Activity, other specified; Y99.8 Other external cause status ==

== ENCOUNTER → 2021-07-31 | Outpatient (CLI) | payer OTHER | LOC: MRI 09:28 | PROVIDERS: ATTEND Family Medicine | DX: M75.102 Unspecified rotator cuff tear or rupture of left shoulder, not specified as traumatic (principal); M19.012 Primary osteoarthritis, left shoulder ==

== ENCOUNTER → 2021-08-27 | Outpatient (CLI) | payer OTHER ==
[2021-08-27 09:50] LABS: ABSOLUTE NEUTROPHILS 2.8 thou/uL (1.4-8.2); BASOPHILS 0.4 % (0.0-2.0); EOSINOPHILS 2.9 % (0.0-3.0); HEMATOCRIT 46.8 % (42.0-52.0); HEMOGLOBIN 15.5 gm/dL (14.0-18.0); LYMPHOCYTES 35.5 % (24.0-44.0); MCH 31.9 pg (26.0-34.0); MCHC 33.1 g/dL (28.0-37.0); MCV 96.3 fL (80.0-100.0); MONOCYTES 11.9 % (1.0-8.0); PLATELET COUNT 318 thou/uL (150-400); POLYS 49.3 % (36.0-66.0); RBC 4.86 mil/uL (4.50-6.00); RDW 13.3 % (10.5-14.5); WBC 5.6 thou/uL (4.0-11.0)
[2021-08-27 10:04] LABS: ALBUMIN 4.2 g/dL (3.4-5.0); CALCIUM 9.1 mg/dL (8.5-10.1); CREATININE 0.9 mg/dL (0.7-1.3); TOTAL BILIRUBIN 0.5 mg/dL (0.2-1.0); TOTAL PROTEIN 7.8 g/dL (6.4-8.2)
[2021-08-27 10:06] LABS: POTASSIUM 4.4 mmol/L (3.5-5.1)
== END ==
LOC: CAT 08:58 → EDSTATUS 18:32
PROVIDERS: ATTEND Internal Medicine Cardiovascular Disease
DX: Z13.6 Encounter for screening for cardiovascular disorders (principal); I25.10 Atherosclerotic heart disease of native coronary artery without angina pectoris; J84.10 Pulmonary fibrosis, unspecified; M47.814 Spondylosis without myelopathy or radiculopathy, thoracic region; Z90.49 Acquired absence of other specified parts of digestive tract; Z88.0 Allergy status to penicillin; Z88.2 Allergy status to sulfonamides; Z88.8 Allergy status to other drugs, medicaments and biological substances

== ENCOUNTER → 2021-08-27 | Outpatient (CLI) | payer OTHER | LOC: SJCVCIMAG | PROVIDERS: ATTEND Internal Medicine Cardiovascular Disease | DX: I34.0 Nonrheumatic mitral (valve) insufficiency (principal); R93.1 Abnormal findings on diagnostic imaging of heart and coronary circulation; I48.91 Unspecified atrial fibrillation; E78.5 Hyperlipidemia, unspecified; Z88.0 Allergy status to penicillin; Z88.2 Allergy status to sulfonamides; Z79.82 Long term (current) use of aspirin; Z79.899 Other long term (current) drug therapy ==

== ENCOUNTER → 2021-08-31 | Outpatient (CLI) | payer OTHER ==
[~2021-08-31] VITALS: Ht 188 cm; Wt 103.9 kg
--- NOTE | ~2021-08-31 | P ---
[facility] [place] [address] PROCEDURE REPORT Name: DEEP BAINS Room #: [facility] [id number] Admission: 08/31/21 Attend Phys: Baldo Turner MD Discharge: Date of : 52 Report #: [id number] THIS REPORT FOR: cc: Yrn Eaton MD, Neal A. MD Couchonnal, Luis F. MD ~ DATE OF SERVICE: 08/31/2021 AFIB ABLATION PREOPERATIVE DIAGNOSIS: Atrial fibrillation. POSTOPERATIVE DIAGNOSIS: Atrial fibrillation. HISTORY: The patient, 70-year-old, with history of recurrent atrial fibrillation, here for ablation. ANESTHESIA: The patient underwent general anesthesia with no anesthesia-related complications. PROCEDURES PERFORMED: 1. AFib ablation, CPT code 27161. 2. 3D mapping, CPT code 91533. 3. Intracardiac echo, CPT code 86192. DESCRIPTION OF PROCEDURE: The patient underwent informed consent. We discussed the details of the procedure including the risks, which include, but are not limited to bleeding, vascular damage, stroke, AL, cardiac perforation. He understood these risks and is willing to proceed. He was brought to EP laboratory in a fasting and sedated state, prepped and draped in a standard fashion, placed under general anesthesia, obtained access to the right femoral vein x3, placing an 8, 9, and 7-Monegasque short sheath and a transseptal was performed using an SL1 sheath and a [place] needle after heparinizing the patient. At baseline, the patient was in sinus rhythm. The transseptal was straightforward and exchanged for the cryosheath and placed the Lasso catheter into the left atrium. Using the Lasso catheter, I created a detailed 3D geometry of the left atrium and then, we started isolating the pulmonary veins. The left superior pulmonary vein underwent two 4-minute freezes and isolated at 60 seconds during the second freeze. The left inferior pulmonary vein underwent a 4-minute freeze, a 3-minute freeze, and a 330-second freeze and isolated during the third freeze at 180 seconds. The right superior pulmonary vein underwent a 3-minute freeze and a 4-minute freeze and isolated at 100 seconds during the second freeze. The right inferior pulmonary vein underwent a 3-minute followed by 4-minute followed by 3-minute freeze. I tried freezing low and anterior on the vein and despite having good waveform occlusions, this vein would not isolate. Therefore, I went back up with the Lasso catheter and created a repeat [facility] [address] [place] [address] PROCEDURE REPORT Name: DEEP BAINS [id number] Admission: 08/31/21 Attend Phys: Baldo Turner MD Discharge: Date of : 52 Report #: [id number] voltage map of the left atrium. This showed that the left superior and right superior pulmonary veins were isolated, but the left inferior was reconnected along the anterior navi. The right inferior pulmonary vein was reconnected along the posterior inferior aspect of the vein. Therefore, I went back into the left inferior pulmonary vein and I counter-clocked the balloon anteriorly, which gave me very good temperatures and the vein isolated at 43 seconds. A 4-minute freeze was performed in this vein. I then went to the right inferior pulmonary vein and this time, I counter-clocked the balloon and pulled it inferiorly, which resulted in isolation at 45 seconds and the attempts were much better. I performed a 4-minute freeze on this vein. Now, all pulmonary veins were isolated and the left superior and right superior pulmonary veins showed dissociated pulmonary vein potentials. The basic EP study was performed. AV block was noted at 330 milliseconds. Atrial ERP was noted at 280 milliseconds at a 450-millisecond basic drive cycle length with no jumps and no AV evelyn echoes. Aggressive atrial burst pacing down to 270 beats per minute resulted in AFib and after 5 minutes, the patient did not convert. Therefore, a 200-joule synchronized cardioversion was performed and sinus rhythm was restored. Using intracardiac ultrasound, I verified there was no pericardial effusion. The patient then received systemic protamine. Once the ACT was within acceptable range, all catheters and sheaths were pulled and hemostasis obtained. CONCLUSION: 1. Successful AFib ablation with isolation of the pulmonary veins. 2. Normal EP study with no inducible SVT or atrial flutter. By: [id number] [id number] Baldo Turner MD /nt
[2021-08-31 07:19] LABS: ABSOLUTE NEUTROPHILS 2.8 thou/uL (1.4-8.2); BASOPHILS 0.5 % (0.0-2.0); EOSINOPHILS 3.2 % (0.0-3.0); HEMATOCRIT 42.6 % (42.0-52.0); HEMOGLOBIN 14.5 gm/dL (14.0-18.0); LYMPHOCYTES 32.7 % (24.0-44.0); MCH 32.6 pg (26.0-34.0); MCV 95.9 fL (80.0-100.0); MONOCYTES 14.6 % (1.0-8.0); PLATELET COUNT 282 thou/uL (150-400); RBC 4.45 mil/uL (4.50-6.00); RDW 13.1 % (10.5-14.5); WBC 5.6 thou/uL (4.0-11.0)
[2021-08-31 07:23] VITALS: BP 127/67
[2021-08-31 07:33] LABS: APTT 26.9 Seconds (24.5-32.8); INR 1.04; PROTIME 11.3 Seconds (10.5-12.1)
[2021-08-31 07:34] LABS: CALCIUM 8.9 mg/dL (8.5-10.1); CREATININE 0.9 mg/dL (0.7-1.3)
[2021-08-31 07:40] LABS: TOTAL BILIRUBIN 0.5 mg/dL (0.2-1.0); TOTAL PROTEIN 7.4 g/dL (6.4-8.2)
== END | disposition home or self-care (01) ==
LOC: CATH
PROVIDERS: ATTEND Internal Medicine Cardiovascular Disease
DX: I48.91 Unspecified atrial fibrillation (principal); I10 Essential (primary) hypertension; K21.9 Gastro-esophageal reflux disease without esophagitis; E78.5 Hyperlipidemia, unspecified; Z98.890 Other specified postprocedural states; Z79.899 Other long term (current) drug therapy; Z20.822 Contact with and (suspected) exposure to COVID-19; Z79.01 Long term (current) use of anticoagulants; Z79.82 Long term (current) use of aspirin; Z90.49 Acquired absence of other specified parts of digestive tract; Z88.0 Allergy status to penicillin; Z88.2 Allergy status to sulfonamides; Z91.040 Latex allergy status
CPT/HCPCS: 70005

== ENCOUNTER → 2021-11-30 | Outpatient (CLI) | payer OTHER | LOC: MRI 14:32 | PROVIDERS: ATTEND Family Medicine | DX: M50.11 Cervical disc disorder with radiculopathy, high cervical region (principal); M43.12 Spondylolisthesis, cervical region; M25.78 Osteophyte, vertebrae; M50.123 Cervical disc disorder at C6-C7 level with radiculopathy; M50.122 Cervical disc disorder at C5-C6 level with radiculopathy; M50.121 Cervical disc disorder at C4-C5 level with radiculopathy; M50.13 Cervical disc disorder with radiculopathy, cervicothoracic region; M48.02 Spinal stenosis, cervical region ==